=== PATIENT | female | born 1995 | race Caucasian/White ===

== ENCOUNTER 2017-05-08 18:22 | Emergency (ER) | payer OTHER ==
[2017-05-08 19:29] LABS: Urine Blood NEGATIVE (NEG); Urine Glucose NEGATIVE (NEG); Urine Protein NEGATIVE (NEG)
[2017-05-08 19:33] LABS: Absolute Lymphocytes (CBC) 2.8 K/uL (0.7-4.9); Absolute Monocytes 0.6 K/uL (0.1-1.3); Absolute Neutrophil 5.8 K/uL (1.8-8.0); Basophils % 0.6 % (0-1.3); Eosinophils % 2.4 % (0-4.4); Hematocrit 39.8 % (36.0-45.0); Lymphocytes % 29.7 % (15.3-44.8); MCH 30.3 pg (27.0-35.0); MCV 89.2 fL (80-100); MPV 8.8 fL (7.6-11.3); Monocytes % 6.5 % (3.3-12.3); RBC Red Blood Cell Count 4.46 M/uL (3.86-4.86)
[2017-05-08 19:33] LABS: Urine Bacteria <20 /HPF (<20); Urine RBC <5 /HPF (NONE SEEN)
[2017-05-08 19:34] LABS: Urine Culture Reflex Order NOT NEEDED; Urine Mucus NS /HPF (NONE SEEN)
[2017-05-08 19:41] LABS: Bicarbonate 25 mEq/L (21-31); Glucose Level 109 mg/dL (65-120); Potassium 3.5 mEq/L (3.6-5.0); Sodium Level 140 mEq/L (135-145)
[2017-05-08 19:42] LABS: BUN Blood Urea Nitrogen 12 mg/dL (6-20); Magnesium 1.9 mg/dL (1.8-2.5)
--- NOTE | 2017-05-08 20:28 | ER ---
Nurse's Notes [facility] Name: Emily Lewis Age: 21 yrs Sex: Female : 1995 Arrival Date: 05/08/2017 Time: 18:26 Bed 8 Private MD: Diagnosis: Other fatigue Presentation: 05/08 18:30 Presenting complaint: Patient states: I have been really tired for the last couple la1 days, like I have not been sleeping but I have, I was at work and they said I need to come get checked out. Transition of care: patient was not received from another setting of care. Onset of symptoms was May 08, 2017. Care prior to arrival: None. 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 - Social history:: Smoking status: Patient/guardian denies using tobacco, Patient uses street drugs, marijuana. Screenin:54 Abuse screen: Denies threats or abuse. Nutritional screening: No deficits noted. ae1 Tuberculosis screening: No symptoms or risk factors identified. Fall Risk None identified. No fall in past 12 months (0 pts). Assessment: 18:51 General: Appears in no apparent distress. comfortable, Behavior is cooperative, drowsy. ae1 Pain: Denies pain. Neuro: Level of Consciousness is awake, obeys commands, drowsy. Cardiovascular: Heart tones S1 S2 present Patient's skin is warm and dry. Respiratory: Airway is patent Respiratory effort is even, unlabored, Respiratory pattern is regular, symmetrical, Breath sounds are clear bilaterally. GI: Reports normal bowel habits, Patient currently denies diarrhea, nausea, pain, vomiting. : No signs and/or symptoms were reported regarding the genitourinary system. EENT: No signs and/or symptoms were reported regarding the EENT system. Derm: Skin is pink, warm \T\ dry. Musculoskeletal: Reports Fatigue, overall weakness. 20:01 Reassessment: Patient appears in no apparent distress at this time. Patient and/or aa1 family updated on plan of care and expected duration. Pain level reassessed. Patient is alert, oriented x 3, equal unlabored respirations, skin warm/dry/pink. Awaiting lab results. 20:35 Reassessment: Patient appears in no apparent distress at this time. Patient is alert, aa1 oriented x 3, equal unlabored respirations, skin warm/dry/pink. Discussed d/c \T\ f/u instructions with pt; denies questions or concerns Patient denies pain at this time. Patient states feeling better. Vital Signs: 18:31 BP 118 / 85; Pulse 69; Resp 16; Temp 97.6(TE); Pulse Ox 100% on R/A; Weight 70.31 kg; la1 Height 5 ft. 1 in. (154.94 cm); 19:10 BP 108 / 62 Supine; Pulse 72; aa1 19:12 BP 108 / 63 Sitting; Pulse 73; aa1 19:14 BP 103 / 69 Standing; Pulse 74; aa1 20:35 BP 104 / 70; Pulse 70; Resp 16; Pulse Ox 99% on R/A; Pain 0/10; aa1 18:31 Body Mass Index 29.29 (70.31 kg, 154.94 cm) la1 ED Course: 18:26 Patient arrived in ED. rg4 18:30 Triage completed. la1 18:31 Arm band placed on right wrist. la1 18:35 [facility]. cp 18:35 Gabino Tucker MD is Attending Physician. cp 18:42 Nestor Jean RN is Primary Nurse. ae1 18:42 Bed in low position. Call light in reach. Side rails up X 1. wire lather on. Pulse ae1 ox on. NIBP on. 19:09 Lamine Rocha MD is Attending Physician. cp 20:35 No provider procedures requiring assistance completed. Patient did not have IV access aa1 during this emergency room visit. Administered Medications: No medications were administered Outcome: 20:27 Discharge ordered by . cp 20:35 Discharged to home ambulatory. aa1 20:35 Condition: good 20:35 Discharge instructions given to patient, Instructed on discharge instructions, follow up and referral plans. Demonstrated understanding of instructions, follow-up care. 20:37 Patient left the ED. aa1 Signatures: Suzie Cohen RN RN aa1 Dillon Ryan RN RN la1 Sai Coates PA PA cp Elliott, Andrea, RN RN ae1 Mandie Wilson rg4 Corrections: (The following items were deleted from the chart) 18:31 18:30 Presenting complaint: Patient states: I have been really tired for the last la1 couple days. la1
--- NOTE | 2017-05-08 20:28 | EDPHYS ---
Physician Documentation [facility] Name: Emily Lewis Age: 21 yrs Sex: Female : 1995 Arrival Date: 05/08/2017 Time: 18:26 Bed 8 Private MD: ED Physician Lamine Rocha HPI: 05/08 18:50 This 21 yrs old Female presents to ER via Ambulatory with complaints of cp Weakness. 18:50 The patient presents to the emergency department with fatigue. cp 18:50 Onset: The symptoms/episode began/occurred 3 day(s) ago. cp 18:50 Context: symptoms were worse today while at work. cp 18:50 Associated signs and symptoms: Pertinent positives: near-syncope, Pertinent negatives: cp altered mental status, dizziness, fever, headache, neck stiffness, syncope, visual field changes. Patient's baseline: Neuro: alert and fully oriented, Motor: no deficits, Ambulation: walks without assistance, Speech: normal. Current symptoms: Currently, the patient is not experiencing any symptoms. 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 - Social history:: Smoking status: Patient/guardian denies using tobacco, Patient uses street drugs, marijuana. ROS: 18:55 Constitutional: Positive for fatigue, Negative for body aches, chills, fever, poor PO cp intake. 18:55 Eyes: Negative for injury, pain, redness, and discharge. cp 18:55 ENT: Negative for drainage from ear(s), ear pain, sore throat, difficulty swallowing, cp difficulty handling secretions. 18:55 Cardiovascular: Negative for chest pain, edema, palpitations. cp 18:55 Respiratory: Negative for cough, shortness of breath, wheezing. 18:55 Abdomen/GI: Negative for abdominal pain, nausea, vomiting, and diarrhea, black/tarry stool, rectal bleeding. 18:55 Skin: Negative for cellulitis, rash. 18:55 Neuro: Positive for near syncope, Negative for altered mental status, dizziness, headache, weakness. 18:55 All other systems are negative. Exam: 19:00 Constitutional: The patient appears in no acute distress, alert, awake, cp non-diaphoretic, non-toxic, well developed, well nourished. 19:00 Head/Face: Normocephalic, atraumatic. cp 19:00 Eyes: Pupils equal round and reactive to light, extra-ocular motions intact. Lids and lashes normal. Conjunctiva and sclera are non-icteric and not injected. Cornea within normal limits. Periorbital areas with no swelling, redness, or edema. ENT: Nares patent. No nasal discharge, no septal abnormalities noted. Tympanic membranes are normal and external auditory canals are clear. Oropharynx with no redness, swelling, or masses, exudates, or evidence of obstruction, uvula midline. Mucous membranes moist. Chest/axilla: Normal chest wall appearance and motion. Nontender with no deformity. No lesions are appreciated. Cardiovascular: Regular rate and rhythm with a normal S1 and S2. No gallops, murmurs, or rubs. Normal PMI, no JVD. No pulse deficits. Respiratory: Lungs have equal breath sounds bilaterally, clear to auscultation and percussion. No rales, rhonchi or wheezes noted. No increased work of breathing, no retractions or nasal flaring. Abdomen/GI: Soft, non-tender, with normal bowel sounds. No distension or tympany. No guarding or rebound. No evidence of tenderness throughout. Skin: Warm, dry with normal turgor. Normal color with no rashes, no lesions, and no evidence of cellulitis. Neuro: Awake and alert, GCS 15, oriented to person, place, time, and situation. Cranial nerves II-XII grossly intact. Motor strength 5/5 in all extremities. Sensory grossly intact. Cerebellar exam normal. Normal gait. 19:35 ECG was reviewed by the Attending Physician. cp Vital Signs: 18:31 BP 118 / 85; Pulse 69; Resp 16; Temp 97.6(TE); Pulse Ox 100% on R/A; Weight 70.31 kg; la1 Height 5 ft. 1 in. (154.94 cm); 19:10 BP 108 / 62 Supine; Pulse 72; aa1 19:12 BP 108 / 63 Sitting; Pulse 73; aa1 19:14 BP 103 / 69 Standing; Pulse 74; aa1 20:35 BP 104 / 70; Pulse 70; Resp 16; Pulse Ox 99% on R/A; Pain 0/10; aa1 18:31 Body Mass Index 29.29 (70.31 kg, 154.94 cm) la1 MDM: 18:35 Patient medically screened. cp 20:26 Data reviewed: vital signs, nurses notes, lab test result(s), EKG. cp 20:26 Counseling: I had a detailed discussion with the patient and/or guardian regarding: the cp historical points, exam findings, and any diagnostic results supporting the discharge/admit diagnosis, lab results, to return to the emergency department if symptoms worsen or persist or if there are any questions or concerns that arise at home. 05/08 19:08 Order name: Basic Metabolic Panel; Complete Time: 19:46 05/08 19:46 Interpretation: Normal except: K 3.5. 05/08 19:08 Order name: CBC with Diff; Complete Time: 19:46 05/08 19:08 Order name: Magnesium; Complete Time: 19:46 05/08 19:08 Order name: Urine Microscopic Only; Complete Time: 19:46 05/08 20:09 Interpretation: Normal except: SQEPI 20-50. 05/08 19:09 Order name: Urine Dipstick--Ancillary (enter results); Complete Time: 19:46 [facility] 05/08 19:09 Order name: Urine --Ancillary (enter results); Complete Time: 19:46 [facility] 05/08 18:46 Order name: Urine Dipstick-Ancillary (obtain specimen); Complete Time: 19:04 05/08 18:46 Order name: Urine Test (obtain specimen); Complete Time: 19:04 05/08 19:07 Order name: Orthostatics; Complete Time: 19:18 05/08 19:07 Order name: EKG; Complete Time: 19:07 05/08 19:07 Order name: EKG - Nurse/Tech; Complete Time: 19:32 05/08 19:08 Order name: Cardiac monitoring; Complete Time: 19:17 cp 05/08 19:08 Order name: IV Saline Lock; Complete Time: 20:01 cp 05/08 19:08 Order name: Labs collected and sent; Complete Time: 19:27 05/08 19:08 Order name: O2 Per Protocol; Complete Time: 19:17 cp 05/08 19:08 Order name: O2 Sat Monitoring; Complete Time: :18 cp EC:35 Rate is 70 beats/min. Rhythm is regular. SC interval is normal. QRS interval is normal. cp QT interval is normal. T waves are Flattened in lead III. No ST changes noted. Interpreted by me. Reviewed by me. Administered Medications: No medications were administered Disposition: 05/09 01:31 Co-signature as Attending Physician, Lamine Rocha MD. xuan Disposition: 05/08/17 20:27 Discharged to Home. Impression: Other fatigue. - Condition is Stable. - Discharge Instructions: Near-Syncope, Fatigue. - Work release form, Medication Reconciliation Form, Thank You Letter, Antibiotic Education, Prescription Opioid Use form. - Follow up: Private Physician; When: 1 - 2 days; Reason: Recheck today's complaints. - Problem is new. - Symptoms are unchanged. Signatures: Dispatcher [employer] EDMS Suzie Cohen, RN RN aa1 Lamine Rocha MD MD pkDillon Martinez RN RN la1 Sai Coates PA PA cp Elliott, Andrea, RN RN ae1
[2017-05-08 20:48] VITALS: TEMP 97.6
[2017-05-08 20:52] VITALS: BP 104/70; O2SAT 99
--- NOTE | 2017-05-09 12:45 | EKG ---
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
== END 2017-05-08 20:37 | disposition home or self-care (01) ==
LOC: ER 18:22
DX: R53.83 Other fatigue (principal); Z88.0 Allergy status to penicillin
CPT/HCPCS: 36415; 80048; 81003; 81015; 81025; 83735; 85025; 93005; 99284

== ENCOUNTER 2017-05-28 03:43 | Emergency (ER) | payer OTHER ==
--- NOTE | 2017-05-28 04:14 | ER ---
Nurse's Notes [facility] Name: Emily Lewis Age: 21 yrs Sex: Female : 1995 Arrival Date: 05/28/2017 Time: 03:44 Bed 5 Private MD: Quintin Razo Diagnosis: Pelvic and perineal pain;Chronic salpingitis Presentation: 05/28 03:59 Presenting complaint: Patient states: I have fluid buildup in my fallopian tubes and tl2 I'm supposed to have a consult with my surgeon tomorrow but I can't handle the pain. Denies bleeding. Transition of care: patient was not received from another setting of care. Onset of symptoms was May 26, 2017. Initial Sepsis Screen: Does the patient meet any 2 criteria? No. Patient's initial sepsis screen is negative. Does the patient have a suspected source of infection? No. Patient's initial sepsis screen is negative. Care prior to arrival: None. 03:59 Method Of Arrival: Ambulatory tl2 03:59 Acuity: TAMELA 3 tl2 Triage Assessment: 04:02 General: Appears in no apparent distress. uncomfortable, Behavior is calm, cooperative, tl2 appropriate for age. Pain: Complains of pain in right lower quadrant and left lower quadrant Pain does not radiate. Pain currently is 10 out of 10 on a pain scale. Quality of pain is described as sharp, Is continuous. Neuro: Level of Consciousness is awake, alert, obeys commands, Oriented to person, place, time, situation. Cardiovascular: Denies chest pain. Respiratory: Airway is patent Respiratory effort is even, unlabored, Respiratory pattern is regular, symmetrical. GI: Abdomen is non-distended, Abd is soft Abdomen is tender to palpation in right lower quadrant and left lower quadrant Patient currently denies vomiting. : Denies vaginal bleeding. Derm: Skin is pink, warm \T\ dry. Historical: - Allergies: 04:02 PENICILLINS; tl2 - Home Meds: 04:02 gabapentin 300 mg oral cap 1 cap BID [Active]; tl2 - PMHx: 04:02 Anxiety; Asthma; Bipolar disorder; Depression; Schizophrenia; hydrosalpinges- fluid in tl2 fallopian tubes; - Immunization history:: Adult Immunizations up to date. - Social history:: Smoking status: Patient/guardian denies using tobacco, Patient uses THC. Screenin:05 Abuse screen: Denies threats or abuse. Nutritional screening: No deficits noted. tl2 Tuberculosis screening: No symptoms or risk factors identified. Fall Risk None identified. Assessment: 04:05 General: see triage assessment. tl2 04:17 Reassessment: Dr Tucker at bedside for discussion on discharge instructions pt given RX bb x 1, pt states she will go to [place] where her doctor is. Pt ambulated with steady gait to exit. Vital Signs: 04:02 BP 135 / 98; Pulse 101; Resp 20; Temp 98.2(O); Pulse Ox 97% on R/A; Weight 74.84 kg; tl2 Height 5 ft. 2 in. (157.48 cm); Pain 10/10; 04:02 Body Mass Index 30.18 (74.84 kg, 157.48 cm) tl2 ED Course: 03:44 Patient arrived in ED. am2 03:45 Quintin Razo MD is Private Physician. am2 03:58 Gabino Tucker MD is Attending Physician. 03:59 Shefali Tovar RN is Primary Nurse. tl2 04:00 Triage completed. tl2 04:02 Arm band placed on right wrist. tl2 04:05 Patient has correct armband on for positive identification. Bed in low position. Call tl2 light in reach. Side rails up X 1. 04:19 No provider procedures requiring assistance completed. Patient did not have IV access bb during this emergency room visit. Administered Medications: No medications were administered Outcome: 04:13 Discharge ordered by . gs 04:19 Discharged to home ambulatory. bb 04:19 Condition: stable 04:19 Discharge instructions given to patient, Instructed on discharge instructions, follow up and referral plans. medication usage, Demonstrated understanding of instructions, follow-up care, medications, Prescriptions given X 1. 04:19 Patient left the ED. bb Signatures: Denise Martinez RN RN bb Knox, Taylor, RN RN 2 [facility] Gabino Tucker MD MD
--- NOTE | 2017-05-28 04:14 | EDPHYS ---
Physician Documentation [facility] Name: Emily Lewis Age: 21 yrs Sex: Female : 1995 Arrival Date: 05/28/2017 Time: 03:44 Bed 5 Private MD: Quintin Razo ED Physician Gabino Tucker HPI: 05/28 04:07 This 21 yrs old Female presents to ER via Ambulatory with complaints of gs Abdominal Pain - Low. 04:07 The patient presents with pelvic pain. Onset: The symptoms/episode began/occurred 5 gs year(s) ago, and became persistent. Modifying factors: The symptoms are alleviated by nothing, the symptoms are aggravated by nothing. Associated signs and symptoms: Pertinent negatives: fever, vaginal discharge. Severity of symptoms: At their worst the symptoms were moderate, in the emergency department the symptoms are unchanged. The patient has experienced similar episodes in the past, chronically. The patient has been recently seen by a physician: the patient's primary care provider, us dx hydrosalpinx. Historical: - Allergies: 04:02 PENICILLINS; tl2 - Home Meds: 04:02 gabapentin 300 mg oral cap 1 cap BID [Active]; tl2 - PMHx: 04:02 Anxiety; Asthma; Bipolar disorder; Depression; Schizophrenia; hydrosalpinges- fluid in tl2 fallopian tubes; - Immunization history:: Adult Immunizations up to date. - Social history:: Smoking status: Patient/guardian denies using tobacco, Patient uses THC. ROS: 04:07 Constitutional: Negative for fever. gs 04:07 All other systems are negative. Exam: 04:07 Head/Face: Normocephalic, atraumatic. Eyes: Pupils equal round and reactive to light, gs extra-ocular motions intact. Lids and lashes normal. Conjunctiva and sclera are non-icteric and not injected. Cornea within normal limits. Periorbital areas with no swelling, redness, or edema. ENT: Nares patent. No nasal discharge, no septal abnormalities noted. Tympanic membranes are normal and external auditory canals are clear. Oropharynx with no redness, swelling, or masses, exudates, or evidence of obstruction, uvula midline. Mucous membranes moist. Neck: Trachea midline, no thyromegaly or masses palpated, and no cervical lymphadenopathy. Supple, full range of motion without nuchal rigidity, or vertebral point tenderness. No Meningismus. Chest/axilla: Normal chest wall appearance and motion. Nontender with no deformity. No lesions are appreciated. Cardiovascular: Regular rate and rhythm with a normal S1 and S2. No gallops, murmurs, or rubs. Normal PMI, no JVD. No pulse deficits. Respiratory: Lungs have equal breath sounds bilaterally, clear to auscultation and percussion. No rales, rhonchi or wheezes noted. No increased work of breathing, no retractions or nasal flaring. Back: No spinal tenderness. No costovertebral tenderness. Full range of motion. Skin: Warm, dry with normal turgor. Normal color with no rashes, no lesions, and no evidence of cellulitis. MS/ Extremity: Pulses equal, no cyanosis. Neurovascular intact. Full, normal range of motion. Neuro: Awake and alert, GCS 15, oriented to person, place, time, and situation. Cranial nerves II-XII grossly intact. Motor strength 5/5 in all extremities. Sensory grossly intact. Cerebellar exam normal. Normal gait. 04:07 Constitutional: The patient appears alert, awake. 04:07 Constitutional: The patient appears smells of alcohol, ETOH. 04:07 Abdomen/GI: Palpation: mild abdominal tenderness, in the right lower quadrant and left lower quadrant, can be distracted where does not complain of pain, pt is severely intoxicated. Vital Signs: 04:02 BP 135 / 98; Pulse 101; Resp 20; Temp 98.2(O); Pulse Ox 97% on R/A; Weight 74.84 kg; tl2 Height 5 ft. 2 in. (157.48 cm); Pain 10/10; 04:02 Body Mass Index 30.18 (74.84 kg, 157.48 cm) tl2 MDM: 03:58 Patient medically screened. 04:07 Data reviewed: vital signs, nurses notes. Data reviewed: old medical records, radiologic studies, ultrasound. 04:13 ED course: pt has no fever, peritonitis, vag discharge symptoms are chronic has gs scheduled appt can follow up today. 05/28 04:08 Order name: Urine Dipstick--Ancillary (enter results) rg2 05/28 04:08 Order name: Urine --Ancillary (enter results) rg2 Administered Medications: No medications were administered Disposition: 05/28/17 04:13 Discharged to Home. Impression: Pelvic and perineal pain, Chronic salpingitis. - Condition is Stable. - Discharge Instructions: Pelvic Pain, Female, [id number]. - Prescriptions for Naprosyn 500 mg Oral Tablet - take 1 tablet by ORAL route 2 times per day take with food; 30 tablet. - Medication Reconciliation Form, Thank You Letter, Antibiotic Education, Prescription Opioid Use form. - Follow up: Private Physician; When: 1 - 2 days; Reason: Re-evaluation by your physician. Signatures: Dispatcher [employer] Denise Servin RN RN bb Shefali Tovar RN RN tl2 Gabino Tucker MD MD gs
[2017-05-28 05:32] VITALS: BP 135/98; TEMP 98.2; O2SAT 97
[2017-05-28 06:59] LABS: Urine Blood NEGATIVE (NEG); Urine Glucose NEGATIVE (NEG); Urine Protein NEGATIVE (NEG)
== END 2017-05-28 04:19 | disposition home or self-care (01) ==
LOC: ER 03:43
DX: N70.11 Chronic salpingitis (principal); Z88.0 Allergy status to penicillin
CPT/HCPCS: 81003; 81025; 99282

== ENCOUNTER 2017-06-20 13:22 | Emergency (ER) | payer OTHER ==
[2017-06-20 14:10] LABS: Absolute Lymphocytes (CBC) 1.1 K/uL (0.7-4.9); Absolute Monocytes 0.6 K/uL (0.1-1.3); Absolute Neutrophil 7.8 K/uL (1.8-8.0); Basophils % 0.3 % (0-1.3); Eosinophils % 1.7 % (0-4.4); Hematocrit 42.8 % (36.0-45.0); MCH 29.9 pg (27.0-35.0); MCV 90.3 fL (80-100); Monocytes % 6.1 % (3.3-12.3); RBC Red Blood Cell Count 4.74 M/uL (3.86-4.86)
[2017-06-20] MEDS ORDERED: FENTANYL CITR 100 MCG/2 ML ONE (14:11)
[2017-06-20] MEDS ORDERED: NA CHLORIDE 0.9% 1,000 ML ONE (14:11)
[2017-06-20] MEDS ORDERED: ONDANSETRON 4 MG/2 ML VIAL ONE (14:12)
[2017-06-20 14:13] LABS: Urine Blood TRACE (NEG); Urine Glucose NEGATIVE (NEG); Urine Protein 1+ (NEG); Urine Specific Gravity 1.025 (1.005-1.030); Urine pH 6.5 (5.0-7.0)
[2017-06-20 14:18] LABS: Bicarbonate 24 mEq/L (21-31); Glucose Level 88 mg/dL (65-120); Lipase 56 U/L (22-51); Potassium 3.3 mEq/L (3.6-5.0); Sodium Level 137 mEq/L (135-145)
[2017-06-20 14:25] LABS: ALT/SGPT 28 IU/L (10-60); AST/SGOT 19 IU/L (10-42); Albumin 4.4 g/dL (3.2-5.5); Alkaline Phosphatase 69 IU/L (42-121); Amylase Level 51 U/L (28-100); BUN Blood Urea Nitrogen 12 mg/dL (6-20); Bilirubin Direct 0.1 mg/dL (0-0.2); Bilirubin Total 1.2 mg/dL (0.3-1.2); Protein, Total 7.4 g/dL (6.0-8.3)
[2017-06-20] MEDS ORDERED: POTASSIUM CL SA 10 MEQ TAB PO ONE (14:26)
--- NOTE | 2017-06-20 14:41 | RAD REPORT ---
EXAM DESCRIPTION: CTAbdomen Pelvis W Contrast - 06/20/2017 2:36 pm CLINICAL HISTORY: Abdominal pain. COMPARISON: 05/24/2017 ultrasound study TECHNIQUE: Biphasic CT imaging of the abdomen and pelvis was performed with 100 ml non-ionic IV cont rast. All CT scans are performed using dose optimization technique as appropriate and may include automated exposure control or mA/KV adjustment according to patient size. FINDINGS: The lung bases are clear. The liver, spleen, pancreas, adrenal glands and kidneys are within normal limits. No bowel obstruction, free air, intra-abdominal free fluid or abscess. The appendix is normal. No e vidence of significant lymphadenopathy. Trace free fluid is seen the pelvis. No suspicious bony findings. IMPRESSION: No acute intra-abdominal or pelvic finding.
[2017-06-20] MEDS ORDERED: KETOROLAC 30 MG/ML INJ ONE (15:14)
--- NOTE | 2017-06-20 15:16 | ER ---
Nurse's Notes [facility] Name: Emily Lewis Age: 21 yrs Sex: Female : 1995 Arrival Date: 06/20/2017 Time: 13:26 Bed 23 Private MD: Diagnosis: Vomiting, unspecified;Lower abdominal pain, unspecified Presentation: 06/20 13:29 Presenting complaint: Patient states: I had surgery on both of my fallopian tubes on la1 Wednesday at [facility] because they were both obstructed and now I am having N/V/D and abd pain, I cant hold anything down. Transition of care: patient was not received from another setting of care. Onset of symptoms was June 20, 2017. Initial Sepsis Screen: Does the patient meet any 2 criteria? No. Patient's initial sepsis screen is negative. Does the patient have a suspected source of infection? No. Patient's initial sepsis screen is negative. Care prior to arrival: None. 13:29 Method Of Arrival: Ambulatory la1 13:29 Acuity: TAMELA 3 la1 Triage Assessment: 15:29 General: Appears in no apparent distress. well developed, well nourished. GI: Reports. 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 - Social history:: Smoking status: Patient/guardian denies using tobacco. Screenin:34 Abuse screen: Denies threats or abuse. Nutritional screening: No deficits noted. tl3 Tuberculosis screening: No symptoms or risk factors identified. Fall Risk None identified. Assessment: 13:34 Reassessment: pt reports that she had ovarian surgery on the and has been tl3 feeling bad since , vomiting and diarrhea for the last couple of days too many times to count. General: Appears uncomfortable, well groomed, well developed, well nourished, Behavior is calm, cooperative, appropriate for age. Pain: Complains of pain in abdomen. Neuro: Level of Consciousness is awake, alert, obeys commands, Oriented to person, place, time, situation, Appropriate for age. Cardiovascular: Heart tones S1 S2 present Patient's skin is warm and dry. Respiratory: Airway is patent Trachea midline Respiratory effort is even, unlabored, Respiratory pattern is regular, symmetrical, Breath sounds are clear bilaterally. GI: Abdomen is round multiple episodes of vomiting and diarrhea Bowel sounds present X 4 quads. hyperactive in right upper quadrant, left upper quadrant, right lower quadrant and left lower quadrant. : No signs and/or symptoms were reported regarding the genitourinary system. Urine is clear. EENT: No signs and/or symptoms were reported regarding the EENT system. Derm: No signs and/or symptoms reported regarding the dermatologic system. Musculoskeletal: No signs and/or symptoms reported regarding the musculoskeletal system. 14:39 Reassessment: No changes from previously documented assessment. Patient and/or family tl3 updated on plan of care and expected duration. Pain level reassessed. Patient is alert, oriented x 3, equal unlabored respirations, skin warm/dry/pink. pt returned from CT, IV restarted and infusing without difficulty. Vital Signs: 13:31 BP 110 / 64; Pulse 93; Resp 19; Temp 99.1(TE); Pulse Ox 100% on R/A; Weight 74.84 kg; la1 Height 5 ft. 1 in. (154.94 cm); 13:34 BP 105 / 81; Pulse 75; Resp 18; Pulse Ox 99% on R/A; tl3 14:39 BP 119 / 62; Pulse 72; Resp 18; Pulse Ox 100% on R/A; tl3 15:15 BP 107 / 60; Pulse 62; Resp 17; Pulse Ox 100% on R/A; rk2 13:31 Body Mass Index 31.18 (74.84 kg, 154.94 cm) la1 ED Course: 13:26 Patient arrived in ED. sb2 13:26 Brea Del Toro FNP-C is [facility]. kb 13:26 Pedro Pablo Mackay MD is Attending Physician. kb 13:31 Triage completed. la1 13:31 Arm band placed on right wrist. la1 13:33 Mony Astorga, ELVIRA is Primary Nurse. tl3 13:34 No apparent distress. Awaiting lab results. tl3 13:34 Patient has correct armband on for positive identification. Bed in low position. Call tl3 light in reach. Side rails up X 1. Adult w/ patient. Pulse ox on. NIBP on. Door closed. Lights dimmed. Warm blanket given. 13:34 No provider procedures requiring assistance completed. Initial lab(s) drawn, by me, tl3 sent to lab. Urine collected: clean catch specimen, clear. Inserted saline lock: 20 gauge in right wrist, using aseptic technique. Blood collected. 13:50 Radiology exam delayed due to test not completed at this time. cw1 14:[address] via wheelchair. tl3 14:36 CT Abd/Pelvis - W/Contrast In Process Unspecified. EDMS 14:36 CT completed. Patient moved back from CT. cw1 15:29 IV discontinued. rk2 Administered Medications: 14:15 Drug: NS 0.9% 1000 ml Route: IV; Rate: 1000 ml; Site: right wrist; Delivery: Primary tl3 tubing; 14:24 Follow up: IV Pause: 06/20/2017 14:24; IV Pause Reason: Patient to CT tl3 14:42 Follow up: IV Resume: 06/20/2017 14:42; IV Resume Reason: Patient returned from CT tl3 15:25 Follow up: Response: No adverse reaction; IV Status: Completed infusion rk2 14:23 Drug: Zofran 4 mg Route: IVP; Infused Over: 3 mins; Site: right wrist; tl3 14:42 Follow up: Response: No adverse reaction; Nausea is decreased tl3 14:23 Drug: fentaNYL (PF) 50 mcg Route: IVP; Site: right wrist; tl3 14:42 Follow up: Response: No adverse reaction; Pain is decreased tl3 14:39 Drug: Potassium Chloride 20 mEq Route: PO; tl3 15:27 Follow up: Response: No adverse reaction rk2 15:15 Drug: TORadol 30 mg Route: IVP; Infused Over: 3 mins; Site: right wrist; tl3 15:27 Follow up: Response: No adverse reaction rk2 Outcome: 15:15 Discharge ordered by MD. mckeon 15:28 Discharged to home ambulatory. rk2 15:28 Condition: improved 15:28 Discharge instructions given to patient, Prescriptions given X 2. 15:30 Patient left the ED. rk2 Signatures: Dispatcher [employer] EDMS Brea Del Toro, [place] CAREER ADVISOR-Adrienne Ashley cw1 Dillon Ryan, RN RN la1 Nerissa Elkins, RN RN rk2 Roula Soler sb2 Mony Astorga, RN RN tl3
--- NOTE | 2017-06-20 15:16 | EDPHYS ---
Physician Documentation [facility] Name: Emily Lewis Age: 21 yrs Sex: Female : 1995 Arrival Date: 06/20/2017 Time: 13:26 Bed 23 Private MD: ED Physician Pedro Pablo Mackay HPI: 06/20 13:41 This 21 yrs old Female presents to ER via Ambulatory with complaints of kb Nausea/Vomiting/Diarrhea. 13:41 The patient presents to the emergency department with nausea, vomiting, diarrhea, kb abdominal pain. Onset: The symptoms/episode began/occurred 2 day(s) ago. Possible causes: recent surgery. The symptoms are aggravated by nothing. The symptoms are alleviated by nothing. Associated signs and symptoms: Pertinent positives: abdominal pain, diarrhea, nausea, vomiting. Severity of symptoms: At their worst the symptoms were moderate in the emergency department the symptoms are unchanged. The patient has not experienced similar symptoms in the past. The patient has been recently seen by a physician:. Pt states she had her fallopian tubes cleaned out and a cyst removed on Wednesday at [facility]. States she had had n/v/d and lower abdominal pain for the past 2 days. . 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 - Social history:: Smoking status: Patient/guardian denies using tobacco. ROS: 13:41 Constitutional: Negative for fever, chills, and weight loss, Cardiovascular: Negative kb for chest pain, palpitations, and edema, Respiratory: Negative for shortness of breath, cough, wheezing, and pleuritic chest pain, Back: Negative for injury and pain, : Negative for injury, bleeding, discharge, and swelling, MS/Extremity: Negative for injury and deformity, Skin: Negative for injury, rash, and discoloration, Neuro: Negative for headache, weakness, numbness, tingling, and seizure. 13:41 Abdomen/GI: Positive for abdominal pain, nausea, vomiting, and diarrhea. Exam: 13:47 Constitutional: This is a well developed, well nourished patient who is awake, alert, kb and in no acute distress. Head/Face: Normocephalic, atraumatic. Chest/axilla: Normal chest wall appearance and motion. Nontender with no deformity. No lesions are appreciated. Cardiovascular: Regular rate and rhythm with a normal S1 and S2. No gallops, murmurs, or rubs. Normal PMI, no JVD. No pulse deficits. Respiratory: Lungs have equal breath sounds bilaterally, clear to auscultation and percussion. No rales, rhonchi or wheezes noted. No increased work of breathing, no retractions or nasal flaring. Skin: Warm, dry with normal turgor. Normal color with no rashes, no lesions, and no evidence of cellulitis. MS/ Extremity: Pulses equal, no cyanosis. Neurovascular intact. Full, normal range of motion. Neuro: Awake and alert, GCS 15, oriented to person, place, time, and situation. Cranial nerves II-XII grossly intact. Motor strength 5/5 in all extremities. Sensory grossly intact. Cerebellar exam normal. Normal gait. 13:47 Abdomen/GI: Inspection: abdomen appears normal, Bowel sounds: normal, in all quadrants, Palpation: soft, in all quadrants, moderate abdominal tenderness, in the right lower quadrant and left lower quadrant. Vital Signs: 13:31 BP 110 / 64; Pulse 93; Resp 19; Temp 99.1(TE); Pulse Ox 100% on R/A; Weight 74.84 kg; la1 Height 5 ft. 1 in. (154.94 cm); 13:34 BP 105 / 81; Pulse 75; Resp 18; Pulse Ox 99% on R/A; tl3 14:39 BP 119 / 62; Pulse 72; Resp 18; Pulse Ox 100% on R/A; tl3 15:15 BP 107 / 60; Pulse 62; Resp 17; Pulse Ox 100% on R/A; rk2 13:31 Body Mass Index 31.18 (74.84 kg, 154.94 cm) la1 MDM: 13:34 Patient medically screened. kb 13:47 Data reviewed: vital signs, nurses notes. Data interpreted: Pulse oximetry: on room air kb is 100 %. Interpretation: normal. 15:14 Counseling: I had a detailed discussion with the patient and/or guardian regarding: the kb historical points, exam findings, and any diagnostic results supporting the discharge/admit diagnosis, lab results, radiology results, the need for outpatient follow up, an OB/Gyne specialist, to return to the emergency department if symptoms worsen or persist or if there are any questions or concerns that arise at home. 06/20 13:40 Order name: Amylase, Serum; Complete Time: 14:28 kb 06/20 13:40 Order name: Basic Metabolic Panel; Complete Time: 14:28 kb 06/20 13:40 Order name: CBC with Diff; Complete Time: 14:21 kb 06/20 13:40 Order name: Hepatic Function; Complete Time: 14:28 kb 06/20 13:40 Order name: Lipase; Complete Time: 14:28 kb 06/20 14:06 Order name: Urine Dipstick--Ancillary (enter results); Complete Time: 14:19 ag 06/20 13:40 Order name: Urine Test (obtain specimen); Complete Time: 14:08 kb 06/20 13:40 Order name: CT Abd/Pelvis - W/Contrast; Complete Time: 14:42 kb 06/20 14:06 Order name: Urine --Ancillary (enter results); Complete Time: 14:19 ag 06/20 13:40 Order name: IV Saline Lock; Complete Time: 14:08 kb 06/20 13:40 Order name: Labs collected and sent; Complete Time: 14:08 kb 06/20 13:40 Order name: Urine Dipstick-Ancillary (obtain specimen); Complete Time: 14:08 kb 06/20 14:42 Order name: PO challenge; Complete Time: 14:45 kb Administered Medications: 14:15 Drug: NS 0.9% 1000 ml Route: IV; Rate: 1000 ml; Site: right wrist; Delivery: Primary tl3 tubing; 14:24 Follow up: IV Pause: 06/20/2017 14:24; IV Pause Reason: Patient to CT tl3 14:42 Follow up: IV Resume: 06/20/2017 14:42; IV Resume Reason: Patient returned from CT tl3 15:25 Follow up: Response: No adverse reaction; IV Status: Completed infusion rk2 14:23 Drug: Zofran 4 mg Route: IVP; Infused Over: 3 mins; Site: right wrist; tl3 14:42 Follow up: Response: No adverse reaction; Nausea is decreased tl3 14:23 Drug: fentaNYL (PF) 50 mcg Route: IVP; Site: right wrist; tl3 14:42 Follow up: Response: No adverse reaction; Pain is decreased tl3 14:39 Drug: Potassium Chloride 20 mEq Route: PO; tl3 15:27 Follow up: Response: No adverse reaction rk2 15:15 Drug: TORadol 30 mg Route: IVP; Infused Over: 3 mins; Site: right wrist; tl3 15:27 Follow up: Response: No adverse reaction rk2 Disposition: 06/20/17 15:15 Discharged to Home. Impression: Vomiting, unspecified, Lower abdominal pain, unspecified. - Condition is Stable. - Discharge Instructions: Nausea and Vomiting, [id number], Abdominal Pain, Adult, [id number]. - Prescriptions for Zofran 4 mg Oral Tablet - take 1 tablet by ORAL route every 6 hours As needed; 20 tablet. Diclofenac Sodium 75 mg Oral Tablet, Delayed Release (E.C.) - take 1 tablet by ORAL route 2 times per day As needed; 30 tablet. - Medication Reconciliation Form, Thank You Letter, Antibiotic Education, Prescription Opioid Use form. - Follow up: Emergency Department; When: As needed; Reason: Worsening of condition. Follow up: Private Physician; When: 2 - 3 days; Reason: Recheck today's complaints, Continuance of care, Re-evaluation by your physician. Addendum: 06/29/2017 05:53 Co-signature as Attending Physician, Pedro Pablo Mackay MD I agree with the assessment and w a plan of care. Signatures: Dispatcher [employer] EDSC Brea Del Toro, IMPROVEMENT MANAGER-C IMPROVEMENT MANAGER-Ckb Dillon Ryan RN RN la1 Pedro Pablo Mackay MD MD wa Kidder, Rhonda, RN RN rk2 Mony Astorga RN RN tl3 Corrections: (The following items were deleted from the chart) 06/20 15:30 15:15 06/20/2017 15:15 Discharged to Home. Impression: Vomiting, unspecified; Lower rk2 abdominal pain, unspecified. Condition is Stable. Forms are Medication Reconciliation Form, Thank You Letter, Antibiotic Education, Prescription Opioid Use. Follow up: Emergency Department; When: As needed; Reason: Worsening of condition. Follow up: Private Physician; When: 2 - 3 days; Reason: Recheck today's complaints, Continuance of care, Re-evaluation by your physician. kb
[2017-06-20 15:42] VITALS: TEMP 99.1
[2017-06-20 15:44] VITALS: O2SAT 100
[2017-06-20 15:45] VITALS: BP 107/60
== END 2017-06-20 15:30 | disposition home or self-care (01) ==
LOC: ER 13:22
DX: R10.30 Lower abdominal pain, unspecified (principal); Z88.0 Allergy status to penicillin
CPT/HCPCS: 36415; 74177; 80048; 80076; 81003; 81025; 82150; 83690; 85025; 96361; 96374; 96375; 99284; J2405; J3010; J7030; Q9967

== ENCOUNTER 2017-11-23 21:48 | Emergency (ER) | payer OTHER ==
[2017-11-23] MEDS ORDERED: DIPHENHYDRAMINE 25 MG TAB/CAP ONE (22:40)
[2017-11-23] MEDS ORDERED: GABAPENTIN 300 MG CAP ONE (22:40)
[2017-11-23] MEDS ORDERED: METOCLOPRAMIDE 10 MG/2mL INJ ONE (22:40)
[2017-11-23] MEDS ORDERED: NS 0.9% VIAL 10 ML ONE (22:41)
--- NOTE | 2017-11-23 23:24 | EDPHYS ---
Physician Documentation [facility] Name: Emily Lewis Age: 22 yrs Sex: Female : 1995 Arrival Date: 11/23/2017 Time: 21:50 Bed 15 Private MD: GRECIA SOLIZ ED Physician Henrik Lester HPI: 11/23 22:58 This 22 yrs old Female presents to ER via Ambulatory with complaints of jr8 Nausea, Pressure in head. 22:58 Onset: The symptoms/episode began/occurred acutely, today. Possible causes: unknown. jr8 The symptoms are aggravated by nothing. The symptoms are alleviated by nothing. Associated signs and symptoms: The patient has no apparent associated signs or symptoms. Severity of symptoms: At their worst the symptoms were moderate in the emergency department the symptoms are unchanged. The patient has experienced similar episodes in the past, a few times. The patient has not recently seen a physician. Patient stated that she is having headache and nausea. Stated that she normally gets this before having seizures. Stated that this started about 2 days ago without relief. Has not had a seizure yet but is out of her seizure medication . 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 - Social history:: Smoking status: Patient uses tobacco products, denies chronic smoking, but will smoke occasionally. - Ebola Screening: : No symptoms or risks identified at this time. ROS: 22:58 Eyes: Negative for injury, pain, redness, and discharge, ENT: Negative for injury, jr8 pain, and discharge, Neck: Negative for injury, pain, and swelling, Cardiovascular: Negative for chest pain, palpitations, and edema, Respiratory: Negative for shortness of breath, cough, wheezing, and pleuritic chest pain, Abdomen/GI: Negative for abdominal pain, nausea, vomiting, diarrhea, and constipation, Back: Negative for injury and pain, MS/Extremity: Negative for injury and deformity, Skin: Negative for injury, rash, and discoloration. 22:58 Neuro: Positive for headache, Negative for altered mental status, dizziness, gait disturbance, hearing loss, loss of consciousness, numbness, seizure activity, speech changes, syncope, near syncope, tingling, tinnitus, tremor, visual changes, weakness. Exam: 22:58 Head/Face: Normocephalic, atraumatic. Eyes: Pupils equal round and reactive to light, jr8 extra-ocular motions intact. Lids and lashes normal. Conjunctiva and sclera are non-icteric and not injected. Cornea within normal limits. Periorbital areas with no swelling, redness, or edema. ENT: Nares patent. No nasal discharge, no septal abnormalities noted. Tympanic membranes are normal and external auditory canals are clear. Oropharynx with no redness, swelling, or masses, exudates, or evidence of obstruction, uvula midline. Mucous membranes moist. Neck: Trachea midline, no thyromegaly or masses palpated, and no cervical lymphadenopathy. Supple, full range of motion without nuchal rigidity, or vertebral point tenderness. No Meningismus. Cardiovascular: Regular rate and rhythm with a normal S1 and S2. No gallops, murmurs, or rubs. Normal PMI, no JVD. No pulse deficits. Respiratory: Lungs have equal breath sounds bilaterally, clear to auscultation and percussion. No rales, rhonchi or wheezes noted. No increased work of breathing, no retractions or nasal flaring. Abdomen/GI: Soft, non-tender, with normal bowel sounds. No distension or tympany. No guarding or rebound. No evidence of tenderness throughout. Back: No spinal tenderness. No costovertebral tenderness. Full range of motion. Skin: Warm, dry with normal turgor. Normal color with no rashes, no lesions, and no evidence of cellulitis. MS/ Extremity: Pulses equal, no cyanosis. Neurovascular intact. Full, normal range of motion. Neuro: Awake and alert, GCS 15, oriented to person, place, time, and situation. Cranial nerves II-XII grossly intact. Motor strength 5/5 in all extremities. Sensory grossly intact. Cerebellar exam normal. Normal gait. Vital Signs: 22:06 BP 120 / 86; Pulse 83; Resp 16; Temp 98.9(TE); Pulse Ox 98% on R/A; Weight 74.84 kg; lp1 Height 5 ft. 3 in. (160.02 cm); Pain 8/10; 23:32 BP 113 / 76; Pulse 81; Resp 16; Pulse Ox 99% on R/A; Pain 0/10; aa1 22:06 Body Mass Index 29.23 (74.84 kg, 160.02 cm) lp1 MDM: 21:59 Patient medically screened. jr8 23:22 Data reviewed: vital signs, nurses notes, and as a result, I will discharge patient. jr8 Data interpreted: Pulse oximetry: on room air is 98 %. Interpretation: normal. Counseling: I had a detailed discussion with the patient and/or guardian regarding: the historical points, exam findings, and any diagnostic results supporting the discharge/admit diagnosis, the need for outpatient follow up, a neurologist, to return to the emergency department if symptoms worsen or persist or if there are any questions or concerns that arise at home. Response to treatment: the patient's symptoms have resolved after treatment. Administered Medications: 22:43 Not Given (Other Intervention Used): Reglan 10 mg IVP once; over 1 to 2 minutes aa1 22:43 Not Given (Other Intervention Used): Benadryl 25 mg IVP once aa1 22:43 Drug: Gabapentin 300 mg Route: PO; aa1 23:31 Follow up: Response: No adverse reaction; Marked relief of symptoms aa1 22:43 Drug: Benadryl 25 mg Route: PO; aa1 23:31 Follow up: Response: No adverse reaction; Marked relief of symptoms aa1 22:43 Drug: Reglan 10 mg Route: IM; Site: left gluteus; aa1 23:31 Follow up: Response: No adverse reaction; Marked relief of symptoms aa1 Disposition: 11/24 06:48 Co-signature as Attending Physician, Henrik Lester MD Available for consultation at ps1 all times. . Disposition: 18 23:23 Discharged to Home. Impression: Migraine. - Condition is Stable. - Discharge Instructions: Migraine Headache. - Prescriptions for gabapentin 300 mg Oral capsule - take 1 capsule by ORAL route 2 times per day; 60 capsule. - Medication Reconciliation Form, Thank You Letter, Antibiotic Education, Prescription Opioid Use form. - Follow up: Nando Salazar MD; When: 1 week; Reason: Recheck today's complaints, Continuance of care, Re-evaluation by your physician. - Problem is new. - Symptoms have improved. Signatures: Suzie Cohen RN RN aa1 Joann Rahman RN RN lp1 Rashad Turner, RANGEL PA jr8 Henrik Lester MD MD ps1 Corrections: (The following items were deleted from the chart) 11/23 22:43 22:14 IV Saline Lock ordered. jr8 aa1 23:35 23:23 11/23/2017 23:23 Discharged to Home. Impression: Migraine. Condition is Stable. aa1 Forms are Medication Reconciliation Form, Thank You Letter, Antibiotic Education, Prescription Opioid Use. Follow up: Nando Salazar; When: 1 week; Reason: Recheck today's complaints, Continuance of care, Re-evaluation by your physician. Problem is new. Symptoms have improved. jr8
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
[2017-11-23 23:39] VITALS: TEMP 98.9
[2017-11-23 23:41] VITALS: BP 113/76; O2SAT 99
== END 2017-11-23 23:35 | disposition home or self-care (01) ==
LOC: ER 21:48
DX: G43.909 Migraine, unspecified, not intractable, without status migrainosus (principal); Z72.0 Tobacco use; Z88.0 Allergy status to penicillin
CPT/HCPCS: 96372; 99283; J2765

== ENCOUNTER 2018-12-27 17:31 | Emergency (ER) | payer MEDICAID, OTHER ==
--- OUTSIDE RECORDS SUMMARY | 2018-12-27 17:33 | XMS REPORT ---
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 Conditions or Problems Problem Name Problem Onset Status Entry Provider Comment Standard Annotate Code Date Date Description BMI 31.0-31.9 Active Aubree Body Mass / Paulo AGARWAL Index 31.0-31.9, adult Chronic female 625.9 Active Aubree Unspecified pelvic pain / Paulo AGARWAL symptom associated with female genital organs Dysmenorrhea 625.3 Active Aubree Dysmenorrhea / Paulo AGARWAL Obesity Active Aubree Obesity, / Paulo AGARWAL unspecified Unspecified Active Aubree dyspareunia Paulo AGARWAL Medication List Medication Instructions Start Stop Generic NDC Status Provider Patient Date Date Name Instruction Drug Treatment Unknown - unknown Vital Signs Date Name Value Unit Range Description blood pressure, diastolic 68 mm[Hg] BP guy blood pressure, systolic 103 mm[Hg] BP sys height E&M 61.50 [in_us] Bdy height pulse rate E&M 63 /min Heart rate temperature E&M 98.3 [degF] Body temperature weight E&M 166.50 [lb_av] Weight Measured Diagnostic Results Date Name Value Unit Range Description Office Visit: Acute Visit - Chemistry beta HCG, urine, semiquantitative negative Encounters Date Encounter Provider Code Facility 10:00:48 New Patient Exp Problem - Aubree Bates MD CPT-36953 [facility] CDT 20744 Procedures Code Procedure Name Date Entry Date Standard Description CPT-38580 Urinalysis - - In House 10:00:49 CDT
--- OUTSIDE RECORDS SUMMARY | 2018-12-27 17:33 | XMS REPORT ---
:1995 [facility] Address [address] [place] [address] Care Team Providers Name Role Phone Unavailable Unavailable Unavailable Payers Payer Name Policy Type Policy Number Effective Date Expiration Date Problems This patient has no known problems. Allergies, Adverse Reactions, Alerts Allergy Name Allergy Status Severity Reaction(s) Onset Inactive Treating Comments Type Date Date Clinician Penicillins DA Active SV 2018-02 00:00:0 0 Medications This patient has no known medications. Results Test Description Test Time Test Comments Text Results Atomic Results Result Comments URINALYSIS COMPLETE 2018-10-01 00:12:00 Test Item Value Reference Range Comments UA COLOR (test code=COLU) YELLOW YELLOW UA APPEARANCE (test code=APPU) Cloudy CLEAR UA GLUCOSE DIPSTICK (test NEGATIVE NEGATIVE code=DGLUU) UA BILIRUBIN DIPSTICK (test NEGATIVE NEGATIVE code=BILU) UA KETONE DIPSTICK (test 2+ NEGATIVE code=KETU) UA SPECIFIC GRAVITY (test 1.024 1.001-1.030 code=SGU) UA BLOOD DIPSTICK (test NEGATIVE NEGATIVE code=SIMEON) UA PH DIPSTICK (test code=POPEYE) 5.0 5.0-9.0 UA PROTEIN DIPSTICK (test 1+ NEGATIVE code=PROU) UA UROBILINOGEN DIPSTICK (test 2.0 <=1.0 code=URO) UA NITRITE DIPSTICK (test NEGATIVE NEGATIVE code=JARED) UA ASCORBIC ACID DIPSTICK POSITIVE High levels of ascorbic acid may (test code=AAU) cause false negativeresults for blood, glucose & nitrite. UA LEUKOCYTE ESTERASE DIPSTICK NEGATIVE NEGATIVE (test code=LEUU) UA WBC (test code=WBCU) 6-10 /HPF 0-5 UA RBC (test code=RBCU) 0-5 /HPF 0-5 UA EPITHELIAL CELLS (test MANY /LPF NONE-FEW code=EPIU) UA BACTERIA (test code=BACU) 1+ /HPF NONE SEEN UA MUCUS (test code=MUCU) 3+ /LPF NONE SEEN UR HCG [id number] 23:57:00 Test Item Value Reference Range Comments UR HCG QUAL (test code=HCGQLU) NEGATIVE NEGATIVE
[2018-12-27] MEDS ORDERED: LEVALBUTEROL 1.25 MG/3 ML NEB ONE (18:51)
[2018-12-27] MEDS ORDERED: predniSONE 20 MG TAB ONE (18:52)
[2018-12-27] MEDS ORDERED: HYDROCODONE/CHLORPHEN 5 ML/OSYR ONE (18:52)
--- NOTE | 2018-12-27 20:03 | RAD REPORT ---
EXAM DESCRIPTION: RAD - Chest Single View - 12/27/2018 7:26 pm CLINICAL HISTORY: Productive cough, shortness of breath COMPARISON: November 2014 TECHNIQUE: AP portable chest image was obtained 1915 hours . FINDINGS: Lungs are clear. Heart and vasculature are normal. No measurable pleural effusion and no p neumothorax. No acute bony abnormality seen. No acute aortic findings suspected. IMPRESSION: No acute cardiopulmonary process.
[2018-12-27 20:04] LABS: Urine Blood NEGATIVE (NEG); Urine Glucose NEGATIVE (NEG); Urine Protein NEGATIVE (NEG); Urine Specific Gravity 1.025 (1.005-1.030)
--- NOTE | 2018-12-27 20:57 | ER ---
Nurse's Notes [facility] Name: Emily Lewis Age: 23 yrs Sex: Female : 1995 Arrival Date: 12/27/2018 Time: 17:34 Bed 25 Private MD: Diagnosis: Asthma;Dyspnea, unspecified;Bronchitis, not specified as acute or chronic Presentation: 12/27 17:39 Presenting complaint: Productive cough with brownish colored sputum and SOB today, not hb improved by albuterol inhaler and Mucinex. Also c/o sore throat and chest tightness. Transition of care: patient was not received from another setting of care. Onset of symptoms was December 27, 2018. Risk Assessment: Do you want to hurt yourself or someone else? Patient reports no desire to harm self or others. Initial Sepsis Screen: Does the patient meet any 2 criteria? No. Patient's initial sepsis screen is negative. Does the patient have a suspected source of infection? No. Patient's initial sepsis screen is negative. Care prior to arrival: Medication(s) given: Albuterol inhaler at 1600. 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 - Social history:: Smoking status: Patient uses tobacco products, denies chronic smoking, but will smoke occasionally. - Ebola Screening: : No symptoms or risks identified at this time. - Family history:: not pertinent. - Hospitalizations: : No recent hospitalization is reported. Screenin:02 Abuse screen: Denies threats or abuse. Nutritional screening: No deficits noted. tr5 Tuberculosis screening: No symptoms or risk factors identified. Fall Risk None identified. Assessment: 19:02 General: Appears in no apparent distress. Behavior is calm, cooperative, appropriate tr5 for age. Pain: Complains of pain in chest. Neuro: Level of Consciousness is awake, alert, obeys commands, Oriented to person, place, time, First Crusher are equal bilaterally Moves all extremities. Cardiovascular: Heart tones present Capillary refill < 3 seconds Pulses are all present. Respiratory: Reports cough that is productive, Airway is patent Respiratory effort is even, unlabored, Respiratory pattern is regular, agonal. GI: Abdomen is round Bowel sounds present X 4 quads. Reports nausea, vomiting. : No signs and/or symptoms were reported regarding the genitourinary system. EENT: No signs and/or symptoms were reported regarding the EENT system. Derm: No signs and/or symptoms reported regarding the dermatologic system. Musculoskeletal: 20:32 Reassessment: Patient appears in no apparent distress at this time. Patient and/or tr5 family updated on plan of care and expected duration. Pain level reassessed. Patient is alert, oriented x 3, equal unlabored respirations, skin warm/dry/pink. Vital Signs: 17:42 BP 127 / 71; Pulse 90; Resp 20; Temp 97.8; Pulse Ox 100% on R/A; Weight 72.57 kg; hb Height 5 ft. 2 in. (157.48 cm); Pain 7/10; 17:42 Body Mass Index 29.26 (72.57 kg, 157.48 cm) hb ED Course: 17:34 Patient arrived in ED. mr 17:41 Triage completed. hb 17:43 Arm band placed on. hb 18:13 Mark Russell, ELVIRA is Primary Nurse. tr5 18:34 Librado Lopez MD is Attending Physician. rn 19:02 Call light in reach. Side rails up X 1. tr5 19:28 XRAY Chest (1 view) In Process Unspecified. EDMS 21:13 No provider procedures requiring assistance completed. Patient did not have IV access tr5 during this emergency room visit. Administered Medications: 19:01 Drug: Xopenex 1.25 mg Route: Inhalation; tr5 19:01 Drug: predniSONE 60 mg Route: PO; tr5 19:01 Drug: Tussionex Pennkinetic ER 5 ml Route: PO; tr5 Outcome: 20:57 Discharge ordered by . rn 21:13 Discharged to home ambulatory. tr5 21:13 Condition: stable 21:13 Discharge instructions given to patient, family, Instructed on discharge instructions, follow up and referral plans. Demonstrated understanding of instructions, follow-up care, Prescriptions given X 3. 21:15 Patient left the ED. tr5 Signatures: Dispatcher [employer] LAUREANO Richard Liz LopezLibrado koo MD MD rn Baxter, Heather, RN RN hb Rodriguez, Tommie, RN RN tr5 Corrections: (The following items were deleted from the chart) 17:42 17:39 Acuity: TAMELA 3 hb hb
--- NOTE | 2018-12-27 20:58 | EDPHYS ---
Physician Documentation [facility] Name: Emily Lewis Age: 23 yrs Sex: Female : 1995 Arrival Date: 12/27/2018 Time: 17:34 Bed 25 Private MD: ED Physician Librado Lopez HPI: 12/27 18:59 This 23 yrs old Female presents to ER via Ambulatory with complaints of rn Cough, Vomiting. 18:59 The patient or guardian reports cough, described as moderate, with productive sputum. rn Onset: The symptoms/episode began/occurred this morning. Severity of symptoms: At their worst the symptoms were moderate, in the emergency department the symptoms are unchanged. Modifying factors: The symptoms are alleviated by nothing, the symptoms are aggravated by nothing. Associated signs and symptoms: Pertinent positives: chest pain, rhinorrhea, sore throat, Pertinent negatives: fever. The patient has experienced similar episodes in the past. Reports cough, congestion, + phlegm, sob, all began this morning. No hemoptysis. No fever or chills. Also not sure if she is . Reports asthma and feels similar. Not helped with breathing treatments. . 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 - Social history:: Smoking status: Patient uses tobacco products, denies chronic smoking, but will smoke occasionally. - Ebola Screening: : No symptoms or risks identified at this time. - Family history:: not pertinent. - Hospitalizations: : No recent hospitalization is reported. ROS: 18:59 Constitutional: Negative for fever, chills, and weight loss, Eyes: Negative for injury, rn pain, redness, and discharge, ENT: + congestion and sore throat Neck: Negative for injury, pain, and swelling, Cardiovascular: Negative for palpitations, and edema, Respiratory: + sob/cough/pleuritic type pain Abdomen/GI: Negative for abdominal pain, diarrhea, and constipation, Back: Negative for injury and pain, : Negative for injury, bleeding, discharge, and swelling, MS/Extremity: Negative for injury and deformity, Skin: Negative for injury, rash, and discoloration, Neuro: Negative for headache, numbness, tingling, and seizure. Exam: 18:59 Constitutional: This is a well developed, well nourished patient who is awake, alert, rn and in no acute distress. Sitting upright in bed with legs crossed, + occasional coughing Head/Face: Normocephalic, atraumatic. Eyes: Pupils equal round and reactive to light, extra-ocular motions intact. Lids and lashes normal. Conjunctiva and sclera are non-icteric and not injected. Cornea within normal limits. Periorbital areas with no swelling, redness, or edema. ENT: + MMM, mild pharyngeal erythema, no exudate, no stridor or swelling Neck: Trachea midline, no thyromegaly or masses palpated, and no cervical lymphadenopathy. Supple, full range of motion without nuchal rigidity, or vertebral point tenderness. No Meningismus. Cardiovascular: Regular rate and rhythm. No pulse deficits. Respiratory: Faint bilateral exp wheezing, no retractions, speaking full sentences interupted with coughing fits. Abdomen/GI: soft, non-tender MS/ Extremity: Pulses equal, no cyanosis. Neurovascular intact. Full, normal range of motion. Equal circumference. Neuro: Awake and alert, GCS 15, oriented to person, place, time, and situation. Cranial nerves II-XII grossly intact. Motor strength 5/5 in all extremities. Sensory grossly intact. Cerebellar exam normal. Vital Signs: 17:42 BP 127 / 71; Pulse 90; Resp 20; Temp 97.8; Pulse Ox 100% on R/A; Weight 72.57 kg; hb Height 5 ft. 2 in. (157.48 cm); Pain 7/10; 17:42 Body Mass Index 29.26 (72.57 kg, 157.48 cm) hb MDM: 18:34 Patient medically screened. rn 20:54 Differential Diagnosis: Bronchitis Influenza Upper Respiratory Infection Sinusitis rn Allergic Rhinitis Viral Syndrome Pneumonia. Data reviewed: vital signs, nurses notes, lab test result(s), radiologic studies, plain films, and as a result, I will discharge patient. Counseling: I had a detailed discussion with the patient and/or guardian regarding: the historical points, exam findings, and any diagnostic results supporting the discharge/admit diagnosis, lab results, radiology results, the need for outpatient follow up, to return to the emergency department if symptoms worsen or persist or if there are any questions or concerns that arise at home. Response to treatment: the patient's symptoms have markedly improved after treatment, and as a result, I will discharge patient. Special discussion: I discussed with the patient/guardian in detail that at this point there is no indication for admission to the hospital. It is understood, however, that if the symptoms persist or worsen the patient needs to return immediately for re-evaluation. 12/27 18:41 Order name: Flu; Complete Time: 20:10 rn 12/27 18:41 Order name: Strep; Complete Time: 20:10 rn 12/27 18:41 Order name: XRAY Chest (1 view); Complete Time: 20:10 rn 12/27 19:19 Order name: Urine Dipstick--Ancillary (enter results); Complete Time: 20:10 mw2 12/27 19:19 Order name: Urine --Ancillary (enter results); Complete Time: 20:10 2 12/27 19:55 Order name: Throat Culture EDWI 12/27 18:41 Order name: Urine Test (obtain specimen); Complete Time: 19:15 rn Administered Medications: 19:01 Drug: Xopenex 1.25 mg Route: Inhalation; tr5 19:01 Drug: predniSONE 60 mg Route: PO; tr5 19:01 Drug: Tussionex Pennkinetic ER 5 ml Route: PO; tr5 Disposition: 12/27/18 20:57 Discharged to Home. Impression: Asthma, Dyspnea, unspecified, Bronchitis, not specified as acute or chronic. - Condition is Stable. - Discharge Instructions: Acute Bronchitis, Adult, Shortness of Breath, Asthma, Acute Bronchospasm, Cough, Adult. - Prescriptions for Prednisone 20 mg Oral Tablet - take 3 tablet by ORAL route once daily for 5 days; 15 tablet. Zithromax Z- Jamir 250 mg Oral Tablet - take 1 tablet by ORAL route as directed for 5 days Day 1 - take two (2) tablets one time. Day 2, 3, 4 , 5 take one (1) tablet once daily.; 6 tablet. Albuterol Sulfate 90 mcg/actuation - inhale 1-2 puff by INHALATION route every 4-6 hours; 1 Inhaler. - Medication Reconciliation Form, Thank You Letter, Antibiotic Education, Prescription Opioid Use form. - Follow up: Private Physician; When: As needed; Reason: Recheck today's complaints, Re-evaluation by your physician. - Problem is new. - Symptoms have improved. Signatures: Dispatcher [employer] EDMS Librado Lopez MD MD rn Baxter, Heather, RN RN hb Rodriguez, Tommie, RN RN tr5 Corrections: (The following items were deleted from the chart) 21:15 20:57 12/27/2018 20:57 Discharged to Home. Impression: Asthma; Dyspnea, unspecified; tr5 Bronchitis, not specified as acute or chronic. Condition is Stable. Forms are Medication Reconciliation Form, Thank You Letter, Antibiotic Education, Prescription Opioid Use. Follow up: Private Physician; When: As needed; Reason: Recheck today's complaints, Re-evaluation by your physician. Problem is new. Symptoms have improved. rn
[2018-12-27 21:19] VITALS: BP 127/71; TEMP 97.8; O2SAT 100
== END 2018-12-27 21:15 | disposition home or self-care (01) ==
LOC: ER 17:31
DX: J40 Bronchitis, not specified as acute or chronic (principal); J45.909 Unspecified asthma, uncomplicated; R06.00 Dyspnea, unspecified; Z88.0 Allergy status to penicillin; Z72.0 Tobacco use
CPT/HCPCS: 87070; 81025; 87081; 81003; 87804 ×2; 71045; J7512

== ENCOUNTER 2019-03-08 22:47 | Emergency (ER) | payer MEDICAID ==
--- OUTSIDE RECORDS SUMMARY | 2019-03-08 22:49 | XMS REPORT ---
:1995 [facility] Address [address] [place] [address] Care Team Providers Name Role Phone Unavailable [...] code=MUCU) 3+ /LPF NONE SEEN UR HCG [id number] 23:57:00 Test Item Value Reference Range Comments UR HCG QUAL (test code=HCGQLU) NEGATIVE NEGATIVE
--- OUTSIDE RECORDS SUMMARY | 2019-03-08 22:49 | XMS REPORT ---
:1995 Author Organization [facility] Address [address] [place] [phone] Phone Allergies, Adverse Reactions, Alerts Allergy Name Reaction Description Start Date Severity Status Provider No Known Allergies Yessica Lopez NOTEREADER Conditions or Problems Problem Name Problem Onset [...] Patient Exp Problem - Aubree Bates MD CPT-40847 [facility] CDT [id number] Procedures Code Procedure Name Date Entry Date Standard Description CPT-54235 Urinalysis - - In House 10:00:49 CDT
--- NOTE | 2019-03-09 00:34 | ER ---
Nurse's Notes [facility] Name: Emily Lewis Age: 23 yrs Sex: Female : 1995 Arrival Date: 03/08/2019 Time: 22:49 Bed 4 Private MD: Diagnosis: Acute upper respiratory infection, unspecified;Contusion of right foot Presentation: 03/08 23:03 Presenting complaint: Patient states: Flu like symptoms. Pt reports had child at home ao who was positive with flu and now she feel like having flu. Report fever and almost passing out at home. Transition of care: patient was not received from another setting of care. Onset of symptoms is unknown. Risk Assessment: Do you want to hurt yourself or someone else? Patient reports no desire to harm self or others. Initial Sepsis Screen: Does the patient meet any 2 criteria? No. Patient's initial sepsis screen is negative. Does the patient have a suspected source of infection? No. Patient's initial sepsis screen is negative. Care prior to arrival: None. 23:03 Method Of Arrival: Ambulatory ao 23:03 Acuity: TAMELA 4 ao Triage Assessment: 23:05 General: Appears in no apparent distress. uncomfortable, Behavior is calm, cooperative, ao appropriate for age. Pain: Complains of pain in right foot. EENT: No signs and/or symptoms were reported regarding the EENT system. Neuro: Level of Consciousness is awake, alert, obeys commands, Oriented to person, place, time, situation, Appropriate for age Moves all extremities. Weakness Speech is normal. Cardiovascular: Capillary refill < 3 seconds Patient's skin is warm and dry. Respiratory: Airway is patent Respiratory effort is even, unlabored, Respiratory pattern is regular, agonal. GI: Abdomen is non-distended. : No signs and/or symptoms were reported regarding the genitourinary system. Derm: No signs and/or symptoms reported regarding the dermatologic system. 03/09 00:24 General: Behavior is calm, cooperative, appropriate for age. 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 - Coronavirus screen:: The patient has NOT traveled to [place], [place], or [place] in the past 14 days. Proceed with normal triage process as indicated. - Social history:: Smoking status: unknown. - Ebola Screening: : Patient negative for fever greater than or equal to 101.5 degrees Fahrenheit, and additional compatible Ebola Virus Disease symptoms Patient denies exposure to infectious person Patient denies travel to an Ebola-affected area in the 21 days before illness onset. Screenin:06 Abuse screen: Denies threats or abuse. Denies injuries from another. Nutritional ao screening: No deficits noted. Tuberculosis screening: No symptoms or risk factors identified. Fall Risk None identified. Assessment: 03/09 00:01 General: Appears in no apparent distress. Pain:. Neuro: Level of Consciousness is rv awake, alert, obeys commands, Oriented to person, place, time, situation. Cardiovascular: Patient's skin is warm and dry. Respiratory: Airway is patent. Derm: Skin is intact. 00:25 Reassessment: DC given to patient. Patient agree with POC and to follow up with PCP. ao Vital Signs: 03/08 22:58 BP 120 / 74; Pulse 91; Resp 17; Temp 97.6(O); Pulse Ox 99% on R/A; ar5 03/09 00:01 BP 119 / 80; Pulse 88; Resp 17; Pulse Ox 99% on R/A; rv ED Course: 03/08 22:49 Patient arrived in ED. ag3 22:57 Scott Vázquez, ELVIRA is Primary Nurse. ao 23:00 Rashad Turner PA is PHCP. jr8 23:00 Robinson Mustafa MD is Attending Physician. jr8 23:04 Triage completed. ao 23:06 Arm band placed on right wrist. Patient placed in an exam room, Patient notified of ao wait time. 23:06 Patient has correct armband on for positive identification. Pulse ox on. NIBP on. ao 23:36 XRAY Foot RIGHT 3 View In Process Unspecified. EDMS 03/09 00:24 No provider procedures requiring assistance completed. Patient did not have IV access ao during this emergency room visit. Administered Medications: No medications were administered Outcome: 00:09 Discharge ordered by MD. reina 00:25 Discharged to home ambulatory. ao 00:25 Condition: stable 00:25 Discharge instructions given to patient, Instructed on discharge instructions, follow up and referral plans. the need for admit, Demonstrated understanding of instructions, follow-up care, Prescriptions given X 2. 00:28 Patient left the ED. ao Signatures: Dispatcher [employer] EDMS Rashad Turner PA PA jr8 Ortiz, Alex, RN RN Erick Maharaj RN RN Jayne Posadas3 Amanda Hdez ar5
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
[2019-03-09 12:41] VITALS: BP 119/80; O2SAT 99
[2019-03-09 12:43] VITALS: TEMP 97.6
== END 2019-03-09 00:28 | disposition home or self-care (01) ==
LOC: ER 22:47
DX: J06.9 Acute upper respiratory infection, unspecified (principal); S90.31XA Contusion of right foot, initial encounter; W20.8XXA Other cause of strike by thrown, projected or falling object, initial encounter; Y93.9 Activity, unspecified; Z88.0 Allergy status to penicillin
CPT/HCPCS: 87804; 99283

== ENCOUNTER 2019-07-13 17:01 | Emergency (ER) | payer MEDICAID ==
--- OUTSIDE RECORDS SUMMARY | 2019-07-13 17:03 | XMS REPORT | Continuity of Care Document ---
:1995 Author Organization [facility] t Address [address] [place] [address] Care Team Providers Name Role Phone Unavailable Unavailable Unavailable Payers Payer Name Policy Type Policy Number Effective Date Expiration Date S ource Problems This patient has no known problems. Allergies, Adverse Reactions, Alerts Allergy Allergy Status Severity Reaction(s) Onset Inactive Treating Comm ents Source Name Type Date Date Clinician [place] DA Active [facility] ins 02-19 [place] 00:00: [facility] Medications This patient has no known medications. Procedures This patient has no known procedures. Results Test Description Test Time Test Comments Results Result Comments Source URINALYSIS COMPLETE 2018-10-01 00:12:00 Test Item Value Reference Range Interpretation Comme nts UA COLOR (test code = COLU) YELLOW YELLOW UA APPEARANCE (test code = Cloudy CLEAR APPU) UA GLUCOSE DIPSTICK (test NEGATIVE NEGATIVE code = DGLUU) UA BILIRUBIN DIPSTICK (test NEGATIVE NEGATIVE code = BILU) UA KETONE DIPSTICK (test code 2+ NEGATIVE A = KETU) UA SPECIFIC GRAVITY (test 1.024 1.001-1.030 code = SGU) UA BLOOD DIPSTICK (test code NEGATIVE NEGATIVE = SIMEON) UA PH DIPSTICK (test code = 5.0 5.0-9.0 POPEYE) UA PROTEIN DIPSTICK (test 1+ NEGATIVE A code = PROU) UA UROBILINOGEN DIPSTICK 2.0 <=1.0 A (test code = URO) UA NITRITE DIPSTICK (test NEGATIVE NEGATIVE code = JARED) UA ASCORBIC ACID DIPSTICK POSITIVE A Hi gh levels of ascorbic acid may (test code = AAU) cause fals e negativeresults for blood, glucose & nitrite. UA LEUKOCYTE ESTERASE NEGATIVE NEGATIVE DIPSTICK (test code = LEUU) UA WBC (test code = WBCU) 6-10 /HPF 0-5 UA RBC (test code = RBCU) 0-5 /HPF 0-5 UA EPITHELIAL CELLS (test MANY /LPF NONE-FEW code = EPIU) UA BACTERIA (test code = 1+ /HPF NONE SEEN A BACU) UA MUCUS (test code = MUCU) 3+ /LPF NONE SEEN UR HCG [id number] 23:57:00 Test Item Value Reference Range Interpretation Comments UR HCG QUAL (test code = HCGQLU) NEGATIVE NEGATIVE
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
[2019-07-13 18:32] VITALS: TEMP 98; O2SAT 100
[2019-07-13 18:34] VITALS: BP 112/65
== END 2019-07-13 18:24 | disposition home or self-care (01) ==
LOC: ER 17:01
DX: S00.90XA Unspecified superficial injury of unspecified part of head, initial encounter (principal); Y04.2XXA Assault by strike against or bumped into by another person, initial encounter; Y93.9 Activity, unspecified; Y92.019 Unspecified place in single-family (private) house as the place of occurrence of the external cause; Z88.0 Allergy status to penicillin
CPT/HCPCS: 70450; 99283

== ENCOUNTER 2019-08-29 15:02 | Emergency (ER) | payer MEDICAID ==
--- OUTSIDE RECORDS SUMMARY | 2019-08-29 15:36 | XMS REPORT | Continuity of Care Document ---
:[address] [facility] t Address [address] [place] [address] Care Team Providers Name Role Phone Unavailable Unavailable Unavailable Payers Payer Name Policy Type Policy Number Effective Date Expiration Date S ource Problems This patient has no known problems. Allergies, Adverse Reactions, Alerts Allergy Allergy Status Severity Reaction(s) Onset Inactive Treating Comm ents Source Name Type Date Date Clinician [place] DA Active [facility] ins 02-19 [place] 00:00: [facility] 00 are [facility] Medications This patient has no known medications. [...] BLOOD DIPSTICK (test code NEGATIVE NEGATIVE = ISMEON) UA PH DIPSTICK (test code = 5.0 [...] MUCU) 3+ /LPF NONE SEEN UR HCG [id number] 23:57:00 Test Item Value Reference Range Interpretation Comments UR HCG QUAL (test code = HCGQLU) NEGATIVE NEGATIVE
[2019-08-29 16:00] LABS: Urine Blood 3+ (NEG); Urine Glucose NEGATIVE (NEG); Urine Protein 2+ (NEG); Urine Specific Gravity >1.030 (1.005-1.030); Urine pH 6.5 (5.0-7.0)
--- NOTE | 2019-08-29 16:19 | RAD REPORT ---
EXAM DESCRIPTION: CT - Stone Protocol - 08/29/2019 4:09 pm CLINICAL HISTORY: Flank pain. HEMATURIA COMPARISON: Abdomen Pelvis W Contrast dated 06/20/2017 TECHNIQUE: Axial images were obtained without oral or IV contrast. Lack of contrast limits solid org an and vascular assessment. The yjvak-no-vhor spans the entirety of the system partially obscuring uppermost abdomen and lung bases. Coronal reformatted images were obtained and reviewed. All CT scans are performed using dose optimization technique as appropriate and may include automated exposure control or mA/KV adjustment according to patient size. FINDINGS: The lower lung wayne are clear. Imaged portions of the liver and spleen show no suspicious findings on non-contrast imaging. The panc reas and adrenal glands are normal. No pathologic lymphadenopathy in the abdomen or pelvis. No urinary tract stones or obstructive uropathy. No bowel obstruction, free air, free fluid or abscess. Normal appendix noted.Mild sigmoid diverticulo sis without diverticulitis. No significant bony abnormality. 4 cm right adnexal cyst is noted with trace pelvic free fluid. IMPRESSION: No urinary tract stones or obstructive uropathy. 4 cm right adnexal cyst is present with trace pelvic free fluid.
[2019-08-29 17:10] LABS: Urine Bacteria 20-50 /HPF (<20); Urine Culture Reflex Order REFLEXED; Urine RBC >50 /HPF (NONE SEEN)
--- NOTE | 2019-08-29 17:17 | ER ---
Nurse's Notes [facility] Name: Emily Lewis Age: 24 yrs Sex: Female : 1995 Arrival Date: 08/29/2019 Time: 15:14 Bed 20 Private MD: Diagnosis: Urinary tract infection, site not specified Presentation: 08/28 15:30 Chief complaint: Patient states: Sharp pain and discomfort on lower abdomen x 2 days. ca1 Today, abdominal pain is more of a pressure. Reports urinary frequency and urgency, blood in urine. Coronavirus screen: Patient denies a cough. Patient denies shortness of breath or difficulty breathing. Patient denies measured and/or subjective temperature greater than 100.4F prior to today's visit. Patient denies travel on a cruise ship or to a country the [facility] currently lists as an affected area. Patient denies contact with known and/or suspected case of COVID-19. Proceed with normal triage. Ebola Screen: Patient negative for fever greater than or equal to 101.5 degrees Fahrenheit, and additional compatible Ebola Virus Disease symptoms Patient denies exposure to infectious person. Patient denies travel to an Ebola-affected area in the 21 days before illness onset. No symptoms or risks identified at this time. Initial Sepsis Screen: Does the patient meet any 2 criteria? No. Patient's initial sepsis screen is negative. Does the patient have a suspected source of infection? No. Patient's initial sepsis screen is negative. Risk Assessment: Do you want to hurt yourself or someone else? Patient reports no desire to harm self or others. Onset of symptoms was August 29, 2019. 15:30 Method Of Arrival: Ambulatory ca1 15:30 Acuity: TAMELA 3 ca1 RN DELIVERY: 15:35 LMP 08/18/2019 ca1 Historical: - Allergies: 15:35 PENICILLINS; ca1 - Home Meds: 15:35 Albuterol Inhl [Active]; Symbicort inhalation inhalation [Active]; seizure medication ca1 [Active]; - PMHx: 15:35 Anxiety; Asthma; Bipolar disorder; Depression; hydrosalpinges; Schizophrenia; Seizures; ca1 - PSHx: 15:35 Tonsillectomy; Ear Tubes; ca1 - Immunization history:: Adult Immunizations up to date. - Social history:: Smoking status: Patient reports the use of cigarette tobacco products, denies chronic smoking, but will smoke occasionally. Screenin:50 Abuse screen: Denies threats or abuse. Denies injuries from another. Nutritional ph screening: No deficits noted. Tuberculosis screening: No symptoms or risk factors identified. Fall Risk None identified. Assessment: 16:15 General: Appears in no apparent distress. comfortable, Behavior is calm, cooperative, ph appropriate for age, Denies fever, feeling ill. Pain: Complains of pain in suprapubic area. Neuro: Level of Consciousness is awake, alert, obeys commands, Oriented to person, place, time, situation. Cardiovascular: Capillary refill < 3 seconds in bilateral fingers Patient's skin is warm and dry. Respiratory: Airway is patent Respiratory effort is even, unlabored, Respiratory pattern is regular, symmetrical. GI: Abdomen is non-distended, Abd is soft X 4 quads Reports lower abdominal pain, Patient currently denies diarrhea, nausea, vomiting. : Reports urinary frequency, vaginal bleeding that is. Derm: Skin is intact, is healthy with good turgor, Skin is pink, warm \T\ dry. Vital Signs: 15:30 BP 123 / 75; Pulse 89; Resp 15 S; Temp 97.1(TE); Pulse Ox 100% on R/A; Weight 79.38 kg ca1 (R); Height 5 ft. 3 in. (160.02 cm) (R); 17:15 BP 118 / 76; Pulse 78; Resp 16; Temp 97.9; Pulse Ox 100% on R/A; ph 15:30 Body Mass Index 31.00 (79.38 kg, 160.02 cm) ca1 ED Course: 15:14 Patient arrived in ED. fj1 15:33 Triage completed. ca1 15:35 Arm band placed on right wrist. ca1 15:38 Brea Del Toro FNP-C is PHCP. kb 15:38 Librado Lopez MD is Attending Physician. kb 16:10 CT Stone Protocol In Process Unspecified. EDMS 16:25 Tatiana Mahan, ELVIRA is Primary Nurse. ph 16:49 Patient has correct armband on for positive identification. Bed in low position. Call ph light in reach. Side rails up X 1. Pulse ox on. NIBP on. Door closed. Noise minimized. Warm blanket given. 17:57 No provider procedures requiring assistance completed. Patient did not have IV access ph during this emergency room visit. Administered Medications: 17:55 Drug: Macrobid 100 mg Route: PO; ph 17:55 Follow up: Response: No adverse reaction ph 17:55 Drug: Pyridium 100 mg Route: PO; ph 17:55 Follow up: Response: No adverse reaction ph Outcome: 17:16 Discharge ordered by . mike 17:57 Discharged to home ambulatory. ph 17:57 Condition: good 17:57 Discharge instructions given to patient, Instructed on discharge instructions, follow up and referral plans. medication usage, Demonstrated understanding of instructions, follow-up care, medications, Prescriptions given X 2. 17:57 Patient left the ED. ph Addendum: 09/01/2019 07:25 Addendum: Culture Results: Positive urine culture. No further action required. Bacteria e b sensitive to prescribed antibiotic. Signatures: Dispatcher [employer] EDMS Brea Del Toro, GREGORIO CORONA-Tatiana Brooks RN RN Nakia Tolbert Cheryl, RN RN [facility] Ayo Velasco fj
--- NOTE | 2019-08-29 17:17 | EDPHYS ---
Physician Documentation [facility] Name: Emily Lewis Age: 24 yrs Sex: Female : 1995 Arrival Date: 08/29/2019 Time: 15:14 Bed 20 Private MD: ED Physician Librado Lopez HPI: 08/28 17:05 This 24 yrs old Female presents to ER via Ambulatory with complaints of kb Abdominal Pain, Vaginal Bleeding. 17:06 The patient presents with urinary symptoms, dysuria, frequency, hematuria. Onset: The kb symptoms/episode began/occurred last night. Modifying factors: The symptoms are alleviated by nothing, the symptoms are aggravated by urinating. Associated signs and symptoms: Pertinent positives: hematuria, urinary frequency. Severity of symptoms: At their worst the symptoms were moderate, in the emergency department the symptoms are unchanged. The patient has not experienced similar symptoms in the past. The patient has not recently seen a physician. Pt reports dysuria, hematuria, frequency, urgency and suprapubic pain.. 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 - Social history:: Smoking status: Patient reports the use of cigarette tobacco products, denies chronic smoking, but will smoke occasionally. ROS: 17:04 Constitutional: Negative for fever, chills, and weight loss, Cardiovascular: Negative kb for chest pain, palpitations, and edema, Respiratory: Negative for shortness of breath, cough, wheezing, and pleuritic chest pain, Abdomen/GI: Negative for abdominal pain, nausea, vomiting, diarrhea, and constipation, Back: Negative for injury and pain, MS/Extremity: Negative for injury and deformity, Skin: Negative for injury, rash, and discoloration, Neuro: Negative for headache, weakness, numbness, tingling, and seizure. 17:04 : Positive for urinary frequency, small amounts, hematuria, burning with urination. Exam: 17:04 Constitutional: This is a well developed, well nourished patient who is awake, alert, kb and in no acute distress. Head/Face: Normocephalic, atraumatic. Chest/axilla: Normal chest wall appearance and motion. Nontender with no deformity. No lesions are appreciated. Cardiovascular: Regular rate and rhythm with a normal S1 and S2. No gallops, murmurs, or rubs. Normal PMI, no JVD. No pulse deficits. Respiratory: Lungs have equal breath sounds bilaterally, clear to auscultation and percussion. No rales, rhonchi or wheezes noted. No increased work of breathing, no retractions or nasal flaring. Back: No spinal tenderness. No costovertebral tenderness. Full range of motion. Skin: Warm, dry with normal turgor. Normal color with no rashes, no lesions, and no evidence of cellulitis. MS/ Extremity: Pulses equal, no cyanosis. Neurovascular intact. Full, normal range of motion. Neuro: Awake and alert, GCS 15, oriented to person, place, time, and situation. Cranial nerves II-XII grossly intact. Motor strength 5/5 in all extremities. Sensory grossly intact. Cerebellar exam normal. Normal gait. 17:04 Abdomen/GI: Inspection: abdomen appears normal, Bowel sounds: normal, in all quadrants, Palpation: soft, in all quadrants, mild abdominal tenderness, in the suprapubic area. Vital Signs: 15:30 BP 123 / 75; Pulse 89; Resp 15 S; Temp 97.1(TE); Pulse Ox 100% on R/A; Weight 79.38 kg ca1 (R); Height 5 ft. 3 in. (160.02 cm) (R); 17:15 BP 118 / 76; Pulse 78; Resp 16; Temp 97.9; Pulse Ox 100% on R/A; ph 15:30 Body Mass Index 31.00 (79.38 kg, 160.02 cm) ca1 MDM: 15:38 Patient medically screened. kb 17:04 Data reviewed: vital signs, nurses notes. Data interpreted: Pulse oximetry: on room air kb is 100 %. Interpretation: normal. Counseling: I had a detailed discussion with the patient and/or guardian regarding: the historical points, exam findings, and any diagnostic results supporting the discharge/admit diagnosis, lab results, radiology results, the need for outpatient follow up, a family practitioner, to return to the emergency department if symptoms worsen or persist or if there are any questions or concerns that arise at home. 08/28 15:38 Order name: Urine Microscopic Only; Complete Time: 17:14 kb 08/28 15:55 Order name: Urine Dipstick--Ancillary (enter results); Complete Time: 16:02 bd 08/28 15:55 Order name: Urine --Ancillary (enter results); Complete Time: 16:02 bd 08/28 15:56 Order name: CT Stone Protocol; Complete Time: 16:26 kb 08/28 17:11 Order name: Urine Culture EDID 08/28 15:38 Order name: Urine Test (obtain specimen); Complete Time: 16:25 kb 08/28 15:38 Order name: Urine Dipstick-Ancillary (obtain specimen); Complete Time: 16:25 kb Administered Medications: 17:55 Drug: Macrobid 100 mg Route: PO; ph 17:55 Follow up: Response: No adverse reaction ph 17:55 Drug: Pyridium 100 mg Route: PO; ph 17:55 Follow up: Response: No adverse reaction ph Disposition: 18:19 Co-signature as Attending Physician, Librado Lopez MD. rn Disposition: 08/29/19 17:16 Discharged to Home. Impression: Urinary tract infection, site not specified. - Condition is Stable. - Discharge Instructions: Urinary Tract Infection, Adult, [id number]. - Prescriptions for Pyridium 200 mg Oral Tablet - take 1 tablet by ORAL route every 8 hours for 3 days; 9 tablet. Macrobid 100 mg Oral Capsule - take 1 capsule by ORAL route every 12 hours for 10 days; 20 capsule. - Medication Reconciliation Form, Thank You Letter, Antibiotic Education, Prescription Opioid Use form. - Follow up: Emergency Department; When: As needed; Reason: Worsening of condition. Follow up: Private Physician; When: 2 - 3 days; Reason: Recheck today's complaints, Continuance of care, Re-evaluation by your physician. Signatures: Dispatcher [employer] EDID Brea Del Toro, GEOPHYSICAL PROSPECTING SURVEYOR-C GEOPHYSICAL PROSPECTING SURVEYOR-Librado Sheets MD MD rn Hall, Patricia, RN RN ph Acob, Cheryl, RN RN [facility] Corrections: (The following items were deleted from the chart) 17:57 17:16 08/29/2019 17:16 Discharged to Home. Impression: Urinary tract infection, site ph not specified. Condition is Stable. Forms are Medication Reconciliation Form, Thank You Letter, Antibiotic Education, Prescription Opioid Use. Follow up: Emergency Department; When: As needed; Reason: Worsening of condition. Follow up: Private Physician; When: 2 - 3 days; Reason: Recheck today's complaints, Continuance of care, Re-evaluation by your physician. kb
[2019-08-29] MEDS ORDERED: PHENAZOPYRIDINE 100MG TAB PO ONE (17:57)
[2019-08-29] MEDS ORDERED: NITROFURAN MACRO 100 MG CAP PO ONE (17:57)
[2019-08-30 08:47] VITALS: O2SAT 100
[2019-08-30 08:49] VITALS: BP 118/76; TEMP 97.9
== END 2019-08-29 17:57 | disposition home or self-care (01) ==
LOC: ER 15:02
DX: N39.0 Urinary tract infection, site not specified (principal); G40.909 Epilepsy, unspecified, not intractable, without status epilepticus; Z88.0 Allergy status to penicillin; Z72.0 Tobacco use
CPT/HCPCS: 74176; 76377; 81003; 81015; 81025; 87077; 87086; 87088; 87186; 99284

== ENCOUNTER 2020-05-14 08:08 | Emergency (ER) | payer MEDICAID ==
--- OUTSIDE RECORDS SUMMARY | 2020-05-14 08:11 | XMS REPORT | Continuity of Care Document ---
:1995 Author Organization [facility] t Address [address] [place] [id number] Care Team Providers Name Role Phone Unavailable Unavailable Unavailable Payers Payer Name Policy Type Policy Number Effective Date Expiration Date S ource Problems Condition Condition Condition Status Onset Resolution Last Treating Co mments Source Name Details Category Date Date Treatment Clinician Date Uterus Uterus Problem Active [facility] arcuatus Arcuatus 8-14 da 00:00: Medical 00 Group Hydrosalpi Hydrosalpi Problem Active [facility] nx nx 4-20 da 00:00: Medical 00 Group Chronic Chronic Problem Active [facility] pelvic Pelvic 4-20 da inflammato Inflammato 00:00: Me dical ry disease ry Disease 00 Gr oup Dysmenorrh Dysmenorrh Problem Active [facility] ea ea 4-20 da 00:00: Medical 00 Group Chronic Chronic Problem Active [facility] pelvic Pelvic 4-20 da pain of Pain of 00:00: Medical female Female 00 Group Menorrhagi Menorrhagi Problem Active [facility] a a 4-20 da 00:00: Medical Group Schizophre Schizophre Problem Active [facility] sonal sonal 8-08 da 00:00: Medical 00 Group Bipolar Bipolar Problem Active [facility] disorder Disorder 8-08 da 00:00: Medical Group Seizure Seizure Problem Active [place] disorder Disorder 808 da 00:00: Medical 00 Group Allergies, Adverse Reactions, Alerts Allergy Allergy Status Severity Reaction(s) Onset Inactive Treating Comm ents Source Name Type Date Date Clinician Penicill DA Active SV 2018-0 [facility] ins 02-[facility] [place] 00:00: [facility] 00 are [facility] PENICILL Allergy Active Severe Hives [place] INS to da [facility] Medical e Group Social History Smoking Status Start Date Stop Date Source Light Tobacco Smoker [facility] Medications Ordered Filled Start Stop Current Ordering Indication Dosage Frequency Signature Comments Components Source Medication Medication Date Date Medication? Clinician (SIG) Name Name acetaminoph acetaminoph No acetaminop [place] en 300 en 300 hen 300 da mg-codeine mg-codeine mg-codeine Medical 30 mg 30 mg 30 mg Group tablet 1-2 tablet 1-2 tablet 1-2 p.o. q 6 p.o. q 6 p.o. q 6 hrs PRN hrs PRN hrs PRN pain pain pain albuterol albuterol No albuterol [facility] sulfate 2.5 sulfate 2.5 sulfate da mg/3 mL mg/3 mL 2.5 mg/3 Medic al (0.083 %) (0.083 %) mL (0.083 Group solution solution %) for for solution nebulizatio nebulizatio for n n nebulizati on gabapentin gabapentin No gabapentin [facility] 100 mg 100 mg 100 mg da capsule capsule capsule Medica l Take 1 Take 1 Take 1 Group capsule 3 capsule 3 capsule 3 times a day times a day times a by oral by oral day by route. route. oral route. gabapentin gabapentin No gabapentin [facility] 300 mg 300 mg 300 mg da capsule capsule capsule Medica l Group ibuprofen ibuprofen No ibuprofen [facility] 800 mg 800 mg 800 mg da tablet one tablet one tablet one Medical p.o. q 6 p.o. q 6 p.o. q 6 Chapis up hrs PRN hrs PRN hrs PRN pain pain pain phenytoin phenytoin No phenytoin [facility] sodium sodium sodium da extended extended extended Med ical 100 mg 100 mg 100 mg Group capsule capsule capsule ProAir HFA ProAir HFA No ProAir HFA [facility] 90 90 90 da mcg/actuati mcg/actuati mcg/actuat Medical on aerosol on aerosol ion Chapis up inhaler inhaler aerosol inhaler Symbicort Symbicort No Symbicort [facility] 160 mcg-4.5 160 mcg-4.5 160 d a mcg/actuati mcg/actuati mcg-4.5 Medical on HFA on HFA mcg/actuat Group aerosol aerosol ion HFA inhaler inhaler aerosol inhaler tramadol tramadol No tramadol [facility] 37.5 37.5 37.5 da mg-acetamin mg-acetamin mg-acetami Medical ophen 325 ophen 325 nophen 325 Group mg tablet mg tablet mg tablet Virtussin Virtussin No Virtussin [facility] AC 10 AC 10 AC 10 da mg-100 mg/5 mg-100 mg/5 mg-100 Medical mL oral mL oral mg/5 mL Group liquid liquid oral liquid Vital Signs Vital Name Observation Time Observation Value Comments Source BP Diastolic 2019-10-12 00:00:00 78 mm[Hg] [facility] Height 2019-10-12 00:00:00 64 [in_i] [facility] BMI (Body Mass 2019-10-12 00:00:00 31.8 kg/m2 [facility] Index) Group BP Systolic 2019-10-12 00:00:00 124 mm[Hg] [facility] Body Weight 2019-10-12 00:00:00 185.5 [lb_av] [facility] BP Diastolic 2019-09-22 00:00:00 75 mm[Hg] [facility] Height 2019-09-22 00:00:00 64 [in_i] [facility] BMI (Body Mass 2019-09-22 00:00:00 31.9 kg/m2 [facility] Index) Group BP Systolic 2019-09-22 00:00:00 112 mm[Hg] [facility] Body Weight 2019-09-22 00:00:00 186 [lb_av] [facility] BP Diastolic 2019-09-11 00:00:00 74 mm[Hg] [facility] Height 2019-09-11 00:00:00 64 [in_i] [facility] BMI (Body Mass 2019-09-11 00:00:00 31.9 kg/m2 [facility] Index) Group BP Systolic 2019-09-11 00:00:00 118 mm[Hg] [facility] Body Weight 2019-09-11 00:00:00 186 [lb_av] [facility] Procedures Procedure Date / Time Performed Performing Clinician Cathy e Salpingostomy 2017-06-16 00:00:00 [facility] Tonsil[facility] Plan of Care Planned Activity Planned Date Details Comments Source Diagnostic Test 2019-10-12 urinalysis, [facility] Pending 00:00:00 dipstick [code = Group urinalysis, dipstick] Encounters Start End Encounter Admission Attending Care Care Encounter Source Date/Time Date/Time Type Type Clinicians Facility Department ID 2019-10-12 2019-10-12 [place] - [id number] [facility] 00:00:00 00:00:00 [facility] am[facility] Moralez MD: [address] [place] [phone] , Ph. [phone] 2019-09-22 2019-09-22 [facility] [place] [place] - [id number] [facility] 00:00:00 00:00:00 [facility] amandeep Moralez MD: [address] [place] [phone] , Ph. [phone] 2019-09-11 2019-09-11 [facility] [place] [place] - [id number] [facility] 00:00:00 00:00:00 [facility] amandeep Moralez MD: [address] [place] [phone] , Ph. [phone] Results Test Description Test Time Test Comments Results Result Comments Source Urinalysis macro (dipstick) panel - Urine 2019-10-12 08:47:2 0 Test Item Value Reference Range Interpretation Comme nts Leukocytes (test code = Leukocytes) Negative Nitrite (test code = Nitrite) negative Urobilinogen (test code = Urobilinogen) .2 Protein (test code = Protein) Negative pH (test code = pH) 5.5 Blood (test code = Blood) Non-Hemolyzed: Trace Specific [place] (test code = Specific [place]) 1.025 Ketone (test code = Ketone) Negative Bilirubin (test code = Bilirubin) Negative Glucose (test code = Glucose) Negative Appearance (test code = Appearance) Clear Color (test code = Color) [facility] [id number] 11:05:38 Test Item Value Reference Range Interpretation Comments Test (test code = negative Test) [facility] [id number] 11:05:38 Test Item Value Reference Range Interpretation Comments Test (test code = negative Test) [facility] - [id number] 11:04:38 Test Item Value Reference Range Interpretation Comments Leukocytes (test code = Moderate Leukocytes) Nitrite (test code = negative Nitrite) Urobilinogen (test code = .2 Urobilinogen) Protein (test code = Negative Protein) pH (test code = pH) 6.0 Blood (test code = Blood) Hemolyzed: Trace Specific [place] (test code 1.015 = Specific [place]) Ketone (test code = Ketone) Negative Bilirubin (test code = Negative Bilirubin) Glucose (test code = Negative Glucose) Appearance (test code = Clear Appearance) Color (test code = Color) Yellow [facility]dipstick) panel - [id number] 11:04:38 Test Item Value Reference Range Interpretation Comments Leukocytes (test code = Moderate Leukocytes) Nitrite (test code = negative Nitrite) Urobilinogen (test code = .2 Urobilinogen) Protein (test code = Negative Protein) pH (test code = pH) 6.0 Blood (test code = Blood) Hemolyzed: Trace Specific [place] (test code 1.015 = Specific [place]) Ketone (test code = Ketone) Negative Bilirubin (test code = Negative Bilirubin) Glucose (test code = Negative Glucose) Appearance (test code = Clear Appearance) Color (test code = Color) Yellow [facility] Auto Differential panel - [id number] 10:55:00 Test Item Value Reference Range Interpretation Comments white blood count (test code = 8.7 K/uL 4.0-11.5 white blood count) red blood count (test code = red 4.34 M/uL 3.80-5.20 blood count) hemoglobin (test code = 13.1 g/dL 10.5-15.7 hemoglobin) hematocrit (test code = 40.3 % 34.0-50.0 hematocrit) MCV [Entitic volume] (test code = 92.9 fL 86-100 77414-6) mean corpuscular hemoglobin (test 30.2 pg 26.2-33.4 code = mean corpuscular hemoglobin) mean corpuscular HGB conc (test 32.5 g/dL 30-34 code = mean corpuscular HGB conc) red cell distribution width (test 12.6 % 12.0-15.5 code = red cell distribution width) platelet count (test code = 354 K/uL 165-450 platelet count) mean platelet volume (test code = 9.9 fL 9.4-12.6 mean platelet volume) Segmented neutrophils/100 59.4 % 44.4-80.1 leukocytes in Blood (test code = 63062-3) Immature granulocytes [#/volume] 0.0 K/uL 0.0-0.03 in Blood (test code = 64150-4) lymphocyte% (test code = 29.1 % 10.0-50.0 lymphocyte%) mono % (test code = mono %) 7.6 % 3.6-12.0 eos % (test code = eos %) 3.0 % 0.0-5.4 Basophils/100 leukocytes in 0.7 % 0.1-1.2 Unspecified specimen (test code = 14023-3) Band form neutrophils [#/volume] 5.20 K/uL 1.56-6.13 in Blood (test code = 22232-8) Lymphocytes [#/volume] in 2.5 K/uL 1.18-3.74 Unspecified specimen by Automated count (test code = 19605-2) mono # (test code = mono #) 0.66 K/uL 0.24-0.86 eos # (test code = eos #) 0.26 K/uL 0.04-0.36 basophil # (test code = basophil 0.06 K/uL 0.01-0.08 #) NRBC% (test code = NRBC%) 0 /100 WBC 0-0.2 NRBC# (test code = NRBC#) 0 K/uL [facility]dipstick) panel - [id number] 11:26:14 Test Item Value Reference Range Interpretation Comments Leukocytes (test code = Large Leukocytes) Nitrite (test code = negative Nitrite) Urobilinogen (test code = .2 Urobilinogen) Protein (test code = Trace Protein) pH (test code = pH) 6.0 Blood (test code = Blood) Hemolyzed: Trace Specific [place] (test code 1.015 = Specific [place]) Ketone (test code = Ketone) Negative Bilirubin (test code = Negative Bilirubin) Glucose (test code = Negative Glucose) Appearance (test code = Clear Appearance) Color (test code = Color) Yellow [facility] (dipstick) panel - [id number] 11:26:14 Test Item Value Reference Range Interpretation Comments Leukocytes (test code = Large Leukocytes) Nitrite (test code = negative Nitrite) Urobilinogen (test code = .2 Urobilinogen) Protein (test code = Trace Protein) pH (test code = pH) 6.0 Blood (test code = Blood) Hemolyzed: Trace Specific [place] (test code 1.015 = Specific [place]) Ketone (test code = Ketone) Negative Bilirubin (test code = Negative Bilirubin) Glucose (test code = Negative Glucose) Appearance (test code = Clear Appearance) Color (test code = Color) Yellow [facility] macro (dipstick) panel - [id number] 11:26:14 Test Item Value Reference Range Interpretation Comments Leukocytes (test code = Large Leukocytes) Nitrite (test code = negative Nitrite) Urobilinogen (test code = .2 Urobilinogen) Protein (test code = Trace Protein) pH (test code = pH) 6.0 Blood (test code = Blood) Hemolyzed: Trace Specific [place] (test code 1.015 = Specific [place]) Ketone (test code = Ketone) Negative Bilirubin (test code = Negative Bilirubin) Glucose (test code = Negative Glucose) Appearance (test code = Clear Appearance) Color (test code = Color) Yellow [facility] CenterURINALYSIS [id number] 00:12:00 Test Item Value Reference Range Interpretation Comments UA COLOR (test code = YELLOW YELLOW COLU) UA APPEARANCE (test Cloudy CLEAR code = APPU) UA GLUCOSE DIPSTICK NEGATIVE NEGATIVE (test code = DGLUU) UA BILIRUBIN DIPSTICK NEGATIVE NEGATIVE (test code = BILU) UA KETONE DIPSTICK 2+ NEGATIVE A (test code = KETU) UA SPECIFIC GRAVITY 1.024 1.001-1.030 (test code = SGU) UA BLOOD DIPSTICK NEGATIVE NEGATIVE (test code = SIMEON) UA PH DIPSTICK (test 5.0 5.0-9.0 code = POPEYE) UA PROTEIN DIPSTICK 1+ NEGATIVE A (test code = PROU) UA UROBILINOGEN 2.0 <=1.0 A DIPSTICK (test code = URO) UA NITRITE DIPSTICK NEGATIVE NEGATIVE (test code = JARED) UA ASCORBIC ACID POSITIVE A High levels of ascorbic DIPSTICK (test code = acid m ay cause false AAU) negativeresults for blood, glucose & nitrite. UA LEUKOCYTE ESTERASE NEGATIVE NEGATIVE DIPSTICK (test code = LEUU) UA WBC (test code = 6-10 /HPF 0-5 WBCU) UA RBC (test code = 0-5 /HPF 0-5 RBCU) UA EPITHELIAL CELLS MANY /LPF NONE-FEW (test code = EPIU) UA BACTERIA (test 1+ /HPF NONE SEEN A code = BACU) UA MUCUS (test code = 3+ /LPF NONE SEEN MUCU) UR HCG [id number] 23:57:00 Test Item Value Reference Range Interpretation Comments UR HCG QUAL (test code = HCGQLU) NEGATIVE NEGATIVE
--- NOTE | 2020-05-14 10:16 | ER ---
Nurse's Notes [facility] Name: Emily Lewis Age: 24 yrs Sex: Female : 1995 Arrival Date: 05/14/2020 Time: 08:10 Bed External Waiting Private MD: Diagnosis: Presentation: 05/14 08:16 Chief complaint: Patient states: nausea, fatigue, dizziness, howard breast soreness x 3 sv days. Coronavirus screen: Client denies travel out of the [place] in the last 14 days. Client presents with at least one sign or symptom that may indicate coronavirus-19. Standard/surgical mask placed on the client. Provider contacted for isolation considerations. Ebola Screen: No symptoms or risks identified at this time. Risk Assessment: Do you want to hurt yourself or someone else? Patient reports no desire to harm self or others. Onset of symptoms was May 2020. 08:16 Method Of Arrival: Ambulatory sv 08:16 Acuity: TAMELA 3 sv 08:17 Initial Sepsis Screen: Does the patient meet any 2 criteria? No. Patient's initial sv sepsis screen is negative. Does the patient have a suspected source of infection? No. Patient's initial sepsis screen is negative. Triage Assessment: 08:16 General: Appears in no apparent distress. uncomfortable, Behavior is calm, cooperative, sv appropriate for age. Pain: Complains of pain in right breast and left breast Pain currently is 8 out of 10 on a pain scale. Quality of pain is described as soreness Pain began 2-3 days ago. Neuro: Level of Consciousness is awake, alert, obeys commands, Oriented to person, place, time, situation, Gait is steady. Neuro: Reports dizziness. Respiratory: Respiratory effort is even, unlabored. GI: Reports nausea. Historical: - Allergies: 08:17 PENICILLINS; sv 08:17 GABAPENTIN; sv - PMHx: 08:17 Anxiety; Asthma; Bipolar disorder; Depression; hydrosalpinges; Schizophrenia; Seizures; sv - PSHx: 08:17 Tonsillectomy; Ear Tubes; sv - Immunization history:: Client reports having NOT received the Covid vaccine. Flu vaccine is up to date. Vital Signs: 08:17 BP 112 / 83; Pulse 83; Resp 16; Temp 97.6; Pulse Ox 99% ; Weight 80.74 kg; Height 5 ft. sv 3 in. (160.02 cm); Pain 8; 08:17 Body Mass Index 31.53 (80.74 kg, 160.02 cm) sv ED Course: 08:10 Patient arrived in ED. ds1 08:16 Triage completed. sv 08:17 Arm band placed on. sv Administered Medications: No medications were administered Outcome: 10:15 Patient left the ED. sv Signatures: Christine Cummings RN RN sv Jasmin Leal ds1
[2020-05-14 10:20] VITALS: BP 112/83; TEMP 97.6; O2SAT 99
== END 2020-05-14 10:15 | disposition left against medical advice (07) ==
LOC: ER 08:08
DX: Z02.9 Encounter for administrative examinations, unspecified (principal)
CPT/HCPCS: 99281